=== PATIENT | male | born 1975 | race African-American/Black ===

== ENCOUNTER 2018-01-01 23:25 | Emergency (ER) | payer MEDICAID ==
[~2018-01-01] VITALS: Ht 180.3 cm; Wt 89.8 kg
[~2018-01-01 23:25] MED LIST: ACYCLOVIR200 MG/5 M ORAL; ADALAT CC60 MG ORAL; CELEXA20 MG ORAL; CLONIDINE0.1 MG PO; COZAAR100 MG ORAL; DILAUDID2 MG ORAL; FISH OIL CAP1000 MG ORAL; HUMALOG100 UNIT/3 SUBQ; LANTUS SOL100 UNIT/1 SUBQ; LOSARTAN POTAS100 MG ORAL; METOPROLOL SUC200 MG ORAL; METOPROLOL TART50 M1 ORAL; NEXIUM20 MG ORAL; NIFEDIPINE20 MG ORAL; NORCO 10-325 T1 EACH ORAL; ROXICODONE15 MG ORAL; TRANXENE T-TAB7.5 MG PO
[2018-01-01] MEDS ORDERED: VALIUM10 MG ORAL (23:46)
[2018-01-01 23:50] VITALS: BP 198/113
[2018-01-02] MEDS ORDERED: Acetaminophen 500mg (ES) tab ORAL ONE (00:45)
[2018-01-02 01:00] VITALS: BP 198/113
[2018-01-02 01:06] LABS: BASOPHILS % (AUTO) 1.1 % (0.0-2.0); HEMATOCRIT 33.4 % (42.0-52.0); HEMOGLOBIN 11.2 G/DL (14.2-18.0); LYMPHOCYTES % (AUTO) 32.5 % (20.0-45.0); MEAN CORPUSCULAR VOLUME 88 FL (80-99); MONOCYTES % (AUTO) 7.5 % (1.0-10.0); NEUTROPHILS % (AUTO) 55.9 % (45.0-75.0); PLATELET COUNT 313 K/UL (150-450); RED CELL DISTRIBUTION WIDTH 14.8 % (11.6-14.8); WHITE BLOOD COUNT 3.5 K/UL (4.8-10.8)
[2018-01-02 01:09] LABS: ANION GAP 6 mmol/L (5-15); BLOOD UREA NITROGEN 12 mg/dL (7-18); CALCIUM 8.6 MG/DL (8.5-10.1); CARBON DIOXIDE 30 MMOL/L (21-32); CHLORIDE 101 MMOL/L (98-107); POTASSIUM 3.1 MMOL/L (3.5-5.1); SODIUM 137 MMOL/L (136-145)
--- NOTE | 2018-01-02 01:22 | Emergency Room Report ---
History of Present Illness General Chief Complaint: Chest Pain Source: Patient Present Illness HPI Is a 42-year-old male who has been here for chest pain. He has a history of opioid dependence and has been to multiple hospitals for chest pain. He presents with chief complaint abdominal pain and chest pain. Onset for last 2 days. Pain is 10 out of 10. No nausea no vomiting. No radiation. No diaphoresis. Similar pain in the past. He is asking for Dilaudid. Said that he needed every 4 hours. Allergies: Coded Allergies: HYDRALAZINE (Verified Allergy, Severe, angio edema, 04/18/16) angio edema ETODOLAC (Unverified Allergy, Mild, 01/10/16) AMLODIPINE (Unverified Allergy, Unknown, 04/18/16) tolerates nifedipine 04/18/16 ASPIRIN (Verified Allergy, Unknown, 01/09/16) ATENOLOL (Verified Allergy, Unknown, 04/18/16) tolerates metoprolol 04/18/16 DIPHENHYDRAMINE (Verified Allergy, Unknown, 01/10/16) HYDROCHLOROTHIAZIDE (Verified Allergy, Unknown, 01/10/16) LABETALOL (Verified Allergy, Unknown, 04/18/16) tolerates metoprolol 04/18/16 LISINOPRIL (Unverified Allergy, Unknown, 01/10/16) LORATADINE (Verified Allergy, Unknown, 01/10/16) MILK (Verified Allergy, Unknown, 01/10/16) MORPHINE (Verified Allergy, Unknown, 01/09/16) NICARDIPINE (Verified Allergy, Unknown, 04/18/16) tolerates nifedipine 04/18/16 NITROGLYCERIN (Unverified Allergy, Unknown, 01/10/16) PENICILLINS (Unverified Allergy, Unknown, 04/18/16) tolerates cephalexin 04/18/16 [place] (Verified Allergy, Unknown, 01/10/16) SHELLFISH DERIVED (Verified Allergy, Unknown, 01/10/16) Patient History Past Medical History: see triage record, old chart reviewed, HTN Past Surgical History: other Pertinent Family History: none Social History: Denies: smoking Immunizations: other Reviewed Nursing Documentation: PMH: Agreed; PSxH: Agreed Nursing Documentation-PMH Hx Cardiac Problems: Yes Hx Hypertension: Yes Hx Diabetes: Yes Hx Cancer: No Hx Gastrointestinal Problems: No History Of Psychiatric Problem: Yes - anxiety Hx Neurological Problems: Yes - spinal stenosis Review of Systems Eye: Denies: eye pain, blurred vision ENT: Denies: ear pain, nose congestion, throat swelling Respiratory: Denies: cough, shortness of breath Cardiovascular: Reports: chest pain; Denies: palpitations Gastrointestinal: Reports: abdominal pain; Denies: diarrhea, nausea, vomiting Musculoskeletal: Denies: back pain, joint pain Skin: Denies: rash Neurological: Denies: headache, numbness Endocrine: Denies: increased thirst, increased urine Hematologic/Lymphatic: Denies: easy bruising All Other Systems: negative except mentioned in HPI Physical Exam Vital Signs Date Time Temp Pulse Resp B/P (MAP) Pulse Ox O2 Delivery O2 Flow Rate FiO2 01/01/18 23:41 118 20 198/113 99 Room Air vitals with tachycardia and hypertension Sp02 EP Interpretation: reviewed, normal General Appearance: well appearing, no apparent distress, alert Head: normocephalic, atraumatic Eyes: bilateral eye PERRL, bilateral eye EOMI ENT: hearing grossly normal, normal pharynx Neck: full range of motion, supple, no meningismus Respiratory: chest non-tender, lungs clear, normal breath sounds Cardiovascular #1: regular rate, rhythm, no murmur Gastrointestinal: normal bowel sounds, non tender, no mass, no organomegaly, no bruit, non-distended Musculoskeletal: back normal, gait/station normal, normal range of motion Psychiatric: mood/affect normal Skin: warm/dry Medical Decision Making Diagnostic Impression: Primary Impression: Chest pain Qualified Codes: R07.9 - Chest pain, unspecified Additional Impressions: Noncompliance w/medication treatment due to intermit use ofmedication Opioid dependence Qualified Codes: F11.20 - Opioid dependence, uncomplicated Hypertension Qualified Codes: I10 - Essential (primary) hypertension Abdominal pain Qualified Codes: R10.13 - Epigastric pain Uncontrolled diabetes mellitus Qualified Codes: E11.8 - Type 2 diabetes mellitus with unspecified complications; E11.65 - Type 2 diabetes mellitus with hyperglycemia ER Course Patient presents with chest pain and abdominal pain. He has numerous allergies to medication. He said that nitroglycerin give him hypertension. He said Benadryl give him itching. He said he can't take aspirin and can only take Dilaudid. I seen him in the past with the same reason patient. On the [employer] system, he had recent Dilaudid, oxycodone, and hydrocodone prescription. He has 3 different addresses including [place], [place], and [facility]. When I point this out, he became very agitated and said that he had to major surgery within the last couple months. He said that he had abdominal surgery and also heart surgery. He has no scar on his body. He said that he doesn't know what kind of surgery. He said I can call the Hospital in [place] if I want to know. He also is claimed that he has Dilaudid and his bag but wanted IV Dilaudid Because he would not get his Dilaudid, he signed out AMA. He is competent to make that decision. Lab Results Impression lab with elevated glucose EKG Diagnostic Results Rate: tachycardiac Rhythm: NSR ST Segments: other - NSST changes Rhythm Strip Diag. Results Rhythm Strip Time: 01:21 EP Interpretation: yes Rate: 100 Rhythm: NSR, no PVC's, no ectopy Chest X-Ray Diagnostic Results Chest X-Ray Diagnostic Results : Chest X-Ray Ordered: Yes # of Views/Limited/Complete: 1 View Indication: Chest Pain EP Interpretation: Yes Interpretation: no consolidation, no effusion, no pneumothorax, no acute cardiopulmonary disease Impression: No acute disease - Cardiomegaly Electronically Signed by: Naresh Barrientos MD Last Vital Signs Date Time Temp Pulse Resp B/P (MAP) Pulse Ox O2 Delivery O2 Flow Rate FiO2 01/01/18 23:41 118 20 198/113 99 Room Air Status: improved Disposition: AGAINST MEDICAL ADVICE Condition: Stable Referrals: NOT CHOSEN MARLENY/,REFERRING (PCP) NARESH BARRIENTOS M.D. Jan 02, 2018 01:22
[2018-01-02 01:23] LABS: ALANINE AMINOTRANSFERASE 27 U/L (12-78); ALBUMIN 3.6 G/DL (3.4-5.0); ALBUMIN/GLOBULIN RATIO 0.9 (1.0-2.7); ALKALINE PHOSPHATASE 79 U/L (46-116); ASPARTATE AMINO TRANSFERASE 14 U/L (15-37); BILIRUBIN,TOTAL 0.2 MG/DL (0.2-1.0); CKMB 6.3 NG/ML (0.0-3.6); CREATINE KINASE 302 U/L (26-308)
--- NOTE | 2018-01-02 10:36 | Diagnostic Imaging Report ---
Indication: Chest pain Technique: One view of the chest Comparison: 04/15/2016 Findings: Lungs and pleural spaces are clear. Heart size is normal Impression: No acute process
--- NOTE | 2018-01-02 21:18 | Cardiology Report ---
APPROVED REPORT EKG Measurement Heart [id number] IA [id number] Sinus tachycardia Possible Left atrial enlargement Left ventricular hypertrophy Abnormal ECG
== END 2018-01-02 01:00 | disposition left against medical advice (07) ==
LOC: EMR 23:45
DX: R07.9 Chest pain, unspecified (principal); R10.9 Unspecified abdominal pain; Z91.14 Patient's other noncompliance with medication regimen; F11.20 Opioid dependence, uncomplicated; I10 Essential (primary) hypertension; E11.9 Type 2 diabetes mellitus without complications; F41.9 Anxiety disorder, unspecified; Z88.8 Allergy status to other drugs, medicaments and biological substances; Z88.6 Allergy status to analgesic agent; Z91.011 Allergy to milk products; Z88.0 Allergy status to penicillin; Z91.013 Allergy to seafood
CPT/HCPCS: 36415; 71045; 80053; 80307; 82550; 82553; 84484; 85025; 93005; 99283

== ENCOUNTER 2018-01-11 06:25 | Emergency (ER) | payer MEDICAID ==
[~2018-01-11] VITALS: Ht 177.8 cm; Wt 68.0 kg
[~2018-01-11 06:25] MED LIST changes: +VALIUM10 MG ORAL
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
[2018-01-11 07:06] VITALS: BP 169/119
[2018-01-11 09:07] LABS: BASOPHILS % (AUTO) 1.4 % (0.0-2.0); EOSINOPHILS % (AUTO) 0.7 % (0.0-3.0); HEMATOCRIT 41.6 % (42.0-52.0); HEMOGLOBIN 13.1 G/DL (14.2-18.0); LYMPHOCYTES % (AUTO) 32.9 % (20.0-45.0); MEAN CORPUSCULAR VOLUME 89 FL (80-99); MONOCYTES % (AUTO) 9.9 % (1.0-10.0); NEUTROPHILS % (AUTO) 55.2 % (45.0-75.0); PLATELET COUNT 198 K/UL (150-450); RED CELL DISTRIBUTION WIDTH 14.8 % (11.6-14.8); WHITE BLOOD COUNT 3.6 K/UL (4.8-10.8)
[2018-01-11 09:10] VITALS: BP 162/108
[2018-01-11 09:14] LABS: ANION GAP 10 mmol/L (5-15); BLOOD UREA NITROGEN 15 mg/dL (7-18); CALCIUM 9.1 MG/DL (8.5-10.1); CARBON DIOXIDE 28 MMOL/L (21-32); CHLORIDE 103 MMOL/L (98-107); CREATININE 0.8 MG/DL (0.55-1.30); POTASSIUM 3.6 MMOL/L (3.5-5.1); SODIUM 141 MMOL/L (136-145)
[2018-01-11 09:18] LABS: ALANINE AMINOTRANSFERASE 31 U/L (12-78); ALBUMIN 4.1 G/DL (3.4-5.0); ALKALINE PHOSPHATASE 63 U/L (46-116); ASPARTATE AMINO TRANSFERASE 25 U/L (15-37); BILIRUBIN,TOTAL 0.5 MG/DL (0.2-1.0); CREATINE KINASE 655 U/L (26-308)
[2018-01-11] MEDS ORDERED: CELEXA20 MG ORAL (10:20)
[2018-01-11 11:00] VITALS: BP 162/108
--- NOTE | 2018-01-11 11:02 | Diagnostic Imaging Report ---
Indication: Dyspnea Comparison: 01/02/2018 A single view chest radiograph was obtained. Findings: Cardiomediastinal appearance is within normal limits for age. Pulmonary vascularity is appropriate. The diaphragmatic contour is smooth and costophrenic angles are sharp. No pleural effusions are identified. The bones are unremarkable. Impression: No acute findings
== END 2018-01-11 11:26 | disposition home or self-care (01) ==
LOC: EDBD 06:25 → EMR 06:46
DX: F32.9 Major depressive disorder, single episode, unspecified (principal); F43.10 Post-traumatic stress disorder, unspecified; X58.XXXA Exposure to other specified factors, initial encounter; G89.4 Chronic pain syndrome; I10 Essential (primary) hypertension; E11.9 Type 2 diabetes mellitus without complications; Z88.6 Allergy status to analgesic agent; Z88.0 Allergy status to penicillin; Z91.011 Allergy to milk products; Z88.5 Allergy status to narcotic agent; Z91.013 Allergy to seafood; R00.1 Bradycardia, unspecified; M48.00 Spinal stenosis, site unspecified
CPT/HCPCS: 36415; 71045; 80053; 80329; 82550; 84484; 85025; 93005; 96372; 99283

== ENCOUNTER 2018-12-19 00:04 | Emergency (ER) | payer MEDICAID ==
[~2018-12-19] VITALS: Ht 180.3 cm; Wt 86.2 kg
[2018-12-19] MEDS ORDERED: COZAAR100 MG ORAL (00:53)
[2018-12-19 01:00] VITALS: BP 178/111
--- NOTE | 2018-12-19 01:00 | NUR ---
ER Nurse Note: Pt BIBA [address]/o behavior complaint; pt stated he feel depressed because today is his mother's anniversary, also feeling lost and does not have "a direction in life". Pt rambles incoherent statements and repeats them. Pt calm, VSS elevated, no signs of distress. All belongings taken and placed in locker 2. ERMD at pt side; will continue to [facility].
[2018-12-19 01:15] LABS: ANION GAP 11 mmol/L (5-15); BLOOD UREA NITROGEN 15 mg/dL (7-18); CALCIUM 9.3 MG/DL (8.5-10.1); CARBON DIOXIDE 27 MMOL/L (21-32); CHLORIDE 103 MMOL/L (98-107); POTASSIUM 5.1 MMOL/L (3.5-5.1); SODIUM 141 MMOL/L (136-145)
[2018-12-19 01:16] LABS: HEMATOCRIT 41.7 % (42.0-52.0); HEMOGLOBIN 13.5 G/DL (14.2-18.0); MEAN CORPUSCULAR VOLUME 91 FL (80-99); PLATELET COUNT 261 K/UL (150-450); RED BLOOD COUNT 4.61 M/UL (4.70-6.10); RED CELL DISTRIBUTION WIDTH 14.8 % (11.6-14.8)
[2018-12-19 01:20] LABS: ALANINE AMINOTRANSFERASE 45 U/L (12-78); ALKALINE PHOSPHATASE 65 U/L (46-116); BILIRUBIN,TOTAL 0.6 MG/DL (0.2-1.0)
[2018-12-19 01:29] LABS: ASPARTATE AMINO TRANSFERASE 73 U/L (15-37)
[2018-12-19 01:31] VITALS: BP 144/81
--- NOTE | 2018-12-19 01:37 | NUR ---
ER Nurse Note: Pt has not provided urine; all other labs sent and awaiting results. Pt asleep, IV infusing NS, BP 144/81. All safety measures met; will continue to [facility].
--- NOTE | 2018-12-19 03:09 | Emergency Room Report ---
History of Present Illness General Chief Complaint: Behavioral Complaint Source: Patient, EMS (Tereza Nieves DO) Present Illness HPI Patient brought in by paramedics Reports of feeling depressed Patient reports that it was his mother's birthday who has After initial minimal discussion patient has fall sleep History of present illness remains somewhat limited Patient denied any plans of suicide prior to falling asleep Denies any chest pain denies any vomiting (Tereza Nieves DO) Allergies: Coded Allergies: HYDRALAZINE (Verified Allergy, Severe, angio edema, 01/11/18) angio edema ETODOLAC (Unverified Allergy, Mild, 01/11/18) AMLODIPINE (Unverified Allergy, Unknown, 01/11/18) tolerates nifedipine 04/18/16 ASPIRIN (Verified Allergy, Unknown, 01/11/18) ATENOLOL (Verified Allergy, Unknown, 01/11/18) tolerates metoprolol 04/18/16 DIPHENHYDRAMINE (Verified Allergy, Unknown, 01/11/18) HYDROCHLOROTHIAZIDE (Verified Allergy, Unknown, 01/11/18) LABETALOL (Verified Allergy, Unknown, 01/11/18) tolerates metoprolol 04/18/16 LISINOPRIL (Unverified Allergy, Unknown, 01/10/16) LORATADINE (Verified Allergy, Unknown, 01/11/18) MILK (Verified Allergy, Unknown, 01/11/18) MORPHINE (Verified Allergy, Unknown, 01/11/18) NICARDIPINE (Verified Allergy, Unknown, 01/11/18) tolerates nifedipine 04/18/16 NITROGLYCERIN (Unverified Allergy, Unknown, 01/11/18) PENICILLINS (Unverified Allergy, Unknown, 01/11/18) tolerates cephalexin 04/18/16 [place] (Verified Allergy, Unknown, 01/11/18) SHELLFISH DERIVED (Verified Allergy, Unknown, 01/11/18) Patient History Limited by: medical condition Past Medical History: see triage record Pertinent Family History: unable to obtain Reviewed Nursing Documentation: PMH: Agreed; PSxH: Agreed (Tereza Nieves DO) Nursing Documentation-PMH Past Medical History: No History, Except For Hx Cardiac Problems: Yes - loop recorder placed in 2019 Hx Hypertension: Yes Hx Diabetes: Yes Hx Cancer: No Hx Gastrointestinal Problems: Yes - peptic ulcer Hx Dialysis: No - spinal stenosis Hx Neurological Problems: Yes - spinal stenosis (Tereza Nieves DO) Review of Systems All Other Systems: limited - Other than the ones mentioned in the history of present illness all others are reviewed however they do stay limited due to the patient's mental status (Tereza Nieves DO) Physical Exam Vital Signs Date Time Temp Pulse Resp B/P (MAP) Pulse Ox O2 Delivery O2 Flow Rate FiO2 12/19/18 00:00 99.0 140 20 178/111 95 Room Air Sp02 EP Interpretation: reviewed, normal General Appearance: no apparent distress Head: normocephalic, atraumatic Eyes: bilateral eye PERRL, bilateral eye EOMI ENT: hearing grossly normal, normal pharynx, TMs + canals normal, uvula midline Neck: full range of motion, supple, no meningismus, no bony tend Respiratory: lungs clear, normal breath sounds, no rhonchi, no respiratory distress, no retraction, no accessory muscle use Cardiovascular #1: normal peripheral pulses, regular rate, rhythm, no edema, no gallop, no JVD, no murmur Gastrointestinal: normal bowel sounds, non tender, soft, no mass, no organomegaly, non-distended, no guarding, no hernia, no pulsatile mass, no rebound Genitourinary: no CVA tenderness Musculoskeletal: normal inspection Neurologic: responsive, motor strength/tone normal, sensory intact Psychiatric: mood/affect normal Skin: normal color, no rash, warm/dry, palpation normal Lymphatic: normal inspection, no adenopathy (Tereza Nieves DO) Medical Decision Making Diagnostic Impression: Primary Impression: Depression ER Course Multiple differentials and consideration patient has initial blood work for further medical clearance patient's white blood cell count Is low consistent with multiple previous examinations Otherwise remains calm and restful throughout the night Given the patient's complaints and presentation I feel he will require psychiatric consultation who will be contacted in the morning After initial observation patient, had complained of epigastric discomfort reports has a history of peptic ulcer disease Patient also requesting Dilaudid Reports that he cannot take Tylenol however, he can take [place] Patient also reports that he has been seen by multiple medical imaging director, he also does not feel that he has been getting the appropriate answers from different psychiatrist. Patient's otherwise medically further cleared Labs Test 12/19/18 00:35 12/19/18 03:35 White Blood Count 3.0 K/UL (4.8-10.8) Red Blood Count 4.61 M/UL (4.70-6.10) Hemoglobin 13.5 G/DL (14.2-18.0) Hematocrit 41.7 % (42.0-52.0) Mean Corpuscular Volume 91 FL (80-99) Mean Corpuscular Hemoglobin 29.2 PG (27.0-31.0) Mean Corpuscular Hemoglobin Concent 32.3 G/DL (32.0-36.0) Red Cell Distribution Width 14.8 % (11.6-14.8) Platelet Count 261 K/UL (150-450) Mean Platelet Volume 7.1 FL (6.5-10.1) Neutrophils (%) (Auto) % (45.0-75.0) Lymphocytes (%) (Auto) % (20.0-45.0) Monocytes (%) (Auto) % (1.0-10.0) Eosinophils (%) (Auto) % (0.0-3.0) Basophils (%) (Auto) % (0.0-2.0) Differential Total Cells Counted 100 Neutrophils % (Manual) 58 % (45-75) Lymphocytes % (Manual) 33 % (20-45) Monocytes % (Manual) 6 % (1-10) Eosinophils % (Manual) 1 % (0-3) Basophils % (Manual) 2 % (0-2) Band Neutrophils 0 % (0-8) Platelet Estimate Adequate Platelet Morphology Normal Anisocytosis 1+ Ovalocytes 1+ Sodium Level 141 MMOL/L (136-145) Potassium Level 5.1 MMOL/L (3.5-5.1) Chloride Level 103 MMOL/L (98-107) Carbon Dioxide Level 27 MMOL/L (21-32) Anion Gap 11 mmol/L (5-15) Blood Urea Nitrogen 15 mg/dL (7-18) Creatinine 1.0 MG/DL (0.55-1.30) Estimat Glomerular Filtration Rate > 60 mL/min (>60) Glucose Level 189 MG/DL (74-106) Calcium Level 9.3 MG/DL (8.5-10.1) Total Bilirubin 0.6 MG/DL (0.2-1.0) Aspartate Amino Transf (AST/SGOT) 73 U/L (15-37) Alanine Aminotransferase (ALT/SGPT) 45 U/L (12-78) Alkaline Phosphatase 65 U/L (46-116) Troponin I 0.032 ng/mL (0.000-0.056) Total Protein 8.0 G/DL (6.4-8.2) Albumin 4.0 G/DL (3.4-5.0) Globulin 4.0 g/dL Albumin/Globulin Ratio 1.0 (1.0-2.7) Salicylates Level 2.2 ug/mL (2.8-20) Acetaminophen Level < 2 MCG/ML (10-30) Serum Alcohol < 3 mg/dL Urine Opiates Screen Negative (NEGATIVE) Urine Barbiturates Screen Negative (NEGATIVE) Phencyclidine (PCP) Screen Negative (NEGATIVE) Urine Amphetamines Screen Positive (NEGATIVE) Urine Benzodiazepines Screen Positive (NEGATIVE) Urine Cocaine Screen Negative (NEGATIVE) Urine Marijuana (THC) Screen Negative (NEGATIVE) (Tereza Nieves DO) ER Course I discussed this case with Dr. Martinez and she felt there is no need for inpatient evaluation. She thinks he has a personality disorder, but is not suicidal or psychotic currently. Will dc home. Patient seeking pain meds for his chronic back pain, requesting Dilaudid and oxycodone. (DANUTA CARTER M.D) Rhythm Strip Diag. Results EP Interpretation: yes Rate: 70 Rhythm: NSR, no PVC's, no ectopy (Tereza Nieves DO) Last Vital Signs Date Time Temp Pulse Resp B/P (MAP) Pulse Ox O2 Delivery O2 Flow Rate FiO2 12/19/18 01:31 99.0 110 20 144/81 98 Room Air Status: improved (Tereza Nieves DO) Referrals: NOT CHOSEN IPA/,REFERRING (PCP) Tereza Nieves DO Dec 19, 2018 03:09 DANUTA CARTER M.D Dec 19, 2018 10:37
[2018-12-19 03:43] VITALS: BP 140/78
[2018-12-19] MEDS ORDERED: Dicyclomine HCl 10mg/5ml oral soln ORAL ONE (05:15)
[2018-12-19] MEDS ORDERED: Mylanta II UD 30ml ORAL ONE (05:15)
[2018-12-19] MEDS ORDERED: Lidocaine 2% Visc 15ml soln ORAL ONE (05:15)
--- NOTE | 2018-12-19 05:25 | NUR ---
ER Nurse Note: Pt is medically cleared and waiting for psych in the AM. Pt stated he can only take diludad, fentynl, and norco for his pain management. Pt has not complained of pain throughout shift. Pt is upset and refusing to be relocated to a tx 1. Pt stated he cannot have a shared room per his psychiatrist orders. All meds given per ERMD orders. Report given to ADAN Vigil.
[2018-12-19] MEDS ORDERED: HYDROcodone/Acetamin 10/325 tab ORAL ONE (05:30)
--- NOTE | 2018-12-19 05:40 | NUR ---
ED Nurse Note: Patient moved from monitored bed to ortho. Patient has letter from psychiatric facility that he believes confirms why he is to be in a private room. Copied made and placed in chart. Patient agreed to take GI cocktail and pain medication. will continue to monitor.
[2018-12-19 06:14] VITALS: BP 168/117
--- NOTE | 2018-12-19 07:15 | NUR ---
ED Nurse Note: Reports received. pt doing yoga on the floor. respirations even and non-labored noted. skin warm to touch. no open wound noted. AAO x 4. denies SI/HI. denies hearing voices or seeing any things. pt felt depressed due to yesterday was mom's b-day. ordered breakfast tray. will wait for the Dr. Martinez for eval.
[2018-12-19 07:57] VITALS: BP 156/102
[2018-12-19] MEDS ORDERED: oxyCODONE HCL/Acetaminophen 5/325mg ORAL ONE (10:15)
--- NOTE | 2018-12-19 10:45 | NUR ---
ED Nurse Note: Dr. smith at the bed side.
--- NOTE | 2018-12-19 11:25 | NUR ---
ED Nurse Note: pt cleared to be discharge by Dr. Martinez and Dr. He. pt wants to take a shower before discharge. RN instructed pt that no available staff and available shower facility at the ED. RN provide wash cloth and tooth brush with tooth paste. PT request razor and RN explained to pt that no razor at this time. will wait until pt get dress up.
[2018-12-19 11:27] VITALS: BP 150/101
--- NOTE | 2018-12-19 11:58 | NUR ---
Note vanessa in EDM - 12/19/18 at 1238 by LINH ER DISCHARGE NOTE: Patient is cleared to be discharged per ERMD, pt is aox4, on room air, with stable vital signs. pt was given dc instructions, pt was able to verbalize understanding, pt id band removed. pt is able to ambulate with steady gait. pt took all belongings.
--- NOTE | 2018-12-19 12:37 | NUR ---
ER DISCHARGE NOTE: Patient is cleared to be discharged per ERMD, pt is aox4, on room air, with stable vital signs. pt was given dc and prescription instructions, pt was able to verbalize understanding, pt id band and iv site removed without complications. pt is able to ambulate with steady gait. pt took all belongings.
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
== END 2018-12-19 12:38 | disposition home or self-care (01) ==
LOC: EDBD 00:04 → EMR 00:36
DX: F32.9 Major depressive disorder, single episode, unspecified (principal); I10 Essential (primary) hypertension; E11.9 Type 2 diabetes mellitus without complications; Z87.11 Personal history of peptic ulcer disease; Z88.0 Allergy status to penicillin; Z88.8 Allergy status to other drugs, medicaments and biological substances; Z88.6 Allergy status to analgesic agent; Z91.011 Allergy to milk products; Z91.013 Allergy to seafood
CPT/HCPCS: 36415; 80053; 80307; 80329; 84484; 85007; 85025; 99284; J7040

== ENCOUNTER 2020-05-14 04:21 | Inpatient (IN) | payer BC, MEDICAID ==
[2020-05-14] VITALS (9 sets, daily range): BP systolic 162–207; BP diastolic 100–130
[~2020-05-14] VITALS: Ht 188 cm; Wt 106.6 kg
--- NOTE | 2020-05-14 04:25 | NUR ---
Nurse Note: Pt brought in by ambulance 26 c/o LT side upper and lower abd pain since 05/13. 06/25 pain, Pt stated unk cause, denies trauma, denies abdnormal ingestion. Pt denies ETOH use, drug use. Pt stated he is healthy. Pt attached to [facility]. All safety measures met; will continue to [facility].
[2020-05-14] MEDS ORDERED: HYDROmorphone 1mg/ml Carpuject IVP ONE ×3 (04:45→08:30)
--- NOTE | 2020-05-14 05:08 | Diagnostic Imaging Report ---
EXAM: XR Chest, 1 View CLINICAL HISTORY: VOMITING TECHNIQUE: Frontal view of the chest. COMPARISON: No relevant prior studies available. FINDINGS: Lungs: Unremarkable. No consolidation. Pleural space: Unremarkable. No pneumothorax. Heart: Unremarkable. No cardiomegaly. Mediastinum: Unremarkable. Bones/joints: Unremarkable. IMPRESSION: Normal chest x-ray.
[2020-05-14 05:15] LABS: BASOPHILS % (AUTO) 0.9 % (0.0-2.0); EOSINOPHILS % (AUTO) 2.4 % (0.0-3.0); HEMATOCRIT 39.1 % (42.0-52.0); HEMOGLOBIN 11.9 G/DL (14.2-18.0); LYMPHOCYTES % (AUTO) 17.9 % (20.0-45.0); MEAN CORPUSCULAR VOLUME 86 FL (80-99); MONOCYTES % (AUTO) 8.7 % (1.0-10.0); NEUTROPHILS % (AUTO) 70.1 % (45.0-75.0); PLATELET COUNT 327 K/UL (150-450); RED BLOOD COUNT 4.55 M/UL (4.70-6.10); RED CELL DISTRIBUTION WIDTH 15.9 % (11.6-14.8); WHITE BLOOD COUNT 5.4 K/UL (4.8-10.8)
[2020-05-14] MEDS ORDERED: fentaNYL 100 mcg/2 mL IV ONE (05:15)
[2020-05-14 05:25] LABS: ANION GAP 8 mmol/L (5-15); BLOOD UREA NITROGEN 13 mg/dL (7-18); CALCIUM 9.3 MG/DL (8.5-10.1); CARBON DIOXIDE 30 MMOL/L (21-32); CHLORIDE 100 MMOL/L (98-107); CREATININE 1.1 MG/DL (0.55-1.30); SODIUM 138 MMOL/L (136-145)
[2020-05-14 05:30] LABS: ALANINE AMINOTRANSFERASE 20 U/L (12-78); ALBUMIN 3.9 G/DL (3.4-5.0); ALBUMIN/GLOBULIN RATIO 0.9 (1.0-2.7); ALKALINE PHOSPHATASE 87 U/L (46-116); ASPARTATE AMINO TRANSFERASE 17 U/L (15-37); BILIRUBIN,TOTAL 0.3 MG/DL (0.2-1.0)
--- NOTE | 2020-05-14 05:41 | Emergency Room Report ---
History of Present Illness General Chief Complaint: Abdominal Pain Source: Patient Present Illness HPI 45-year-old male with one episode of vomiting and diarrhea earlier tonight and generalized abdominal pain. Patient says that he was eating dinner and then several hours later began to feel generalized abdominal cramping and pain and vomited once and had one episode of diarrhea. Vomiting was nonbilious nonbloody , only occurred 1 time. He had one episode of diarrhea nonbloody. Pain is sharp in nature, located diffusely, poorly localized. He is in no distress whatsoever in the emergency department. Denies fevers, chills, chest pain, palpitation, shortness of breath, back pain, dysuria, hematuria. Patient claims that he has CHF with an ejection fraction of 16% and 2 pulmonary embolisms in the past but not on any anticoagulation because "they said I did not need it anymore." On arrival the patient was immediately demanding Dilaudid and became very agitated when I told him that there was no indication for this. Allergies: Coded Allergies: HYDRALAZINE (Verified Allergy, Severe, angio edema, 01/11/18) angio edema ETODOLAC (Unverified Allergy, Mild, 01/11/18) AMLODIPINE (Unverified Allergy, Unknown, 01/11/18) tolerates nifedipine 04/18/16 ASPIRIN (Verified Allergy, Unknown, 01/11/18) ATENOLOL (Verified Allergy, Unknown, 01/11/18) tolerates metoprolol 04/18/16 DIPHENHYDRAMINE (Verified Allergy, Unknown, 01/11/18) HYDROCHLOROTHIAZIDE (Verified Allergy, Unknown, 01/11/18) LABETALOL (Verified Allergy, Unknown, 01/11/18) tolerates metoprolol 04/18/16 LISINOPRIL (Unverified Allergy, Unknown, 01/10/16) LORATADINE (Verified Allergy, Unknown, 01/11/18) MILK (Verified Allergy, Unknown, 01/11/18) MORPHINE (Verified Allergy, Unknown, 01/11/18) NICARDIPINE (Verified Allergy, Unknown, 01/11/18) tolerates nifedipine 04/18/16 NITROGLYCERIN (Unverified Allergy, Unknown, 01/11/18) PENICILLINS (Unverified Allergy, Unknown, 01/11/18) tolerates cephalexin 04/18/16 [place] Nut (Verified Allergy, Unknown, 01/11/18) SHELLFISH DERIVED (Verified Allergy, Unknown, 01/11/18) COVID-19 Screening Contact w/high risk pt: No Experienced COVID-19 symptoms?: No COVID-19 Testing performed 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 Nursing Documentation-[facility] Past Medical History: No History, Except For Hx Cardiac Problems: Yes - loop recorder placed in 2019 Hx Hypertension: Yes Hx Diabetes: Yes Hx Cancer: No Hx Gastrointestinal Problems: Yes - peptic ulcer Hx Dialysis: No - spinal stenosis Hx Neurological Problems: Yes - spinal stenosis Review of Systems All Other Systems: negative except mentioned in HPI Physical Exam Vital Signs Date Time Temp Pulse Resp B/P (MAP) Pulse Ox O2 Delivery O2 Flow Rate FiO2 05/14/20 04:22 99.0 80 16 138/90 (106) 98 Room Air Sp02 EP Interpretation: reviewed, normal General Appearance: no apparent distress, alert, GCS 15, non-toxic Head: normocephalic, atraumatic Eyes: bilateral eye normal inspection, bilateral eye PERRL ENT: hearing grossly normal, normal pharynx, no angioedema, normal voice Neck: full range of motion, supple/symm/no masses Respiratory: chest non-tender, lungs clear, normal breath sounds, speaking full sentences Cardiovascular #1: regular rate, rhythm, no edema Cardiovascular #2: 2+ carotid (R), 2+ carotid (L), 2+ radial (R), 2+ radial (L) , 2+ dorsalis pedis (R), 2+ dorsalis pedis (L) Gastrointestinal: normal bowel sounds, soft, non-distended, no guarding, no rebound, other - Subjective generalized abdominal tenderness. Nondistended, non -peritoneal ache. No focal pain. No rebound or guarding Rectal: deferred Genitourinary: normal inspection, no CVA tenderness Musculoskeletal: back normal, normal range of motion, calf tenderness, gait/ station normal, non-tender Neurologic: alert, motor strength/tone normal, oriented x3, sensory intact, responsive, speech normal Psychiatric: judgement/insight normal, memory normal, mood/affect normal, no suicidal/homicidal ideation Lymphatic: no adenopathy Medical Decision Making Diagnostic Impression: Primary Impression: Vomiting and diarrhea ER Course EKG: Rate 104 bpm. QTc 497. No obvious ST or T wave abnormalities. Otherwise normal intervals. Sinus tachycardia. Normal axis Chest x-ray: No infiltrate/effusion. Mediastinum within normal limits Laboratory Tests Test 05/14/20 05:05 White Blood Count 5.4 K/UL (4.8-10.8) Red Blood Count 4.55 M/UL (4.70-6.10) L Hemoglobin 11.9 G/DL (14.2-18.0) L Hematocrit 39.1 % (42.0-52.0) L Mean Corpuscular Volume 86 FL (80-99) Mean Corpuscular Hemoglobin 26.2 PG (27.0-31.0) L Mean Corpuscular Hemoglobin Concent 30.5 G/DL (32.0-36.0) L Red Cell Distribution Width 15.9 % (11.6-14.8) H Platelet Count 327 K/UL (150-450) Mean Platelet Volume 7.1 FL (6.5-10.1) Neutrophils (%) (Auto) 70.1 % (45.0-75.0) Lymphocytes (%) (Auto) 17.9 % (20.0-45.0) L Monocytes (%) (Auto) 8.7 % (1.0-10.0) Eosinophils (%) (Auto) 2.4 % (0.0-3.0) Basophils (%) (Auto) 0.9 % (0.0-2.0) Sodium Level 138 MMOL/L (136-145) Potassium Level 3.0 MMOL/L (3.5-5.1) L Chloride Level 100 MMOL/L (98-107) Carbon Dioxide Level 30 MMOL/L (21-32) Anion Gap 8 mmol/L (5-15) Blood Urea Nitrogen 13 mg/dL (7-18) Creatinine 1.1 MG/DL (0.55-1.30) Estimated Glomerular Filtration Rate > 60 mL/min (>60) Glucose Level 290 MG/DL (74-106) H Lactic Acid Level 1.00 mmol/L (0.4-2.0) Calcium Level 9.3 MG/DL (8.5-10.1) Total Bilirubin 0.3 MG/DL (0.2-1.0) Aspartate Amino Transferase (AST) 17 U/L (15-37) Alanine Aminotransferase (ALT) 20 U/L (12-78) Alkaline Phosphatase 87 U/L (46-116) Total Protein 8.1 G/DL (6.4-8.2) Albumin 3.9 G/DL (3.4-5.0) Globulin 4.2 g/dL Albumin/Globulin Ratio 0.9 (1.0-2.7) L 45-year-old male here with vomiting and diarrhea. Patient was hemodynamically stable and in no acute distress whatsoever. Despite this the patient was requesting Dilaudid multiple times in the emergency department. Review of the patient's De Correspondent activity showed many recent prescriptions for opiate medications. I reviewed this with the patient and he immediately became very agitated and then started demanding fentanyl. He received 1 dose of fentanyl in the emergency department and was tolerating p.o. intake and he appeared to be in no acute distress. CBC unremarkable. CMP revealed a mildly low potassium of 3.0 which was repleted with 40 mg p.o. that the patient tolerated well. He received Zofran. When informed the patient that his labs were otherwise unremarkable he became extremely agitated and became verbally abusive and angry. He otherwise was in no acute distress whatsoever and had completely normal vital signs in the emergency department. Discharged in stable condition. Last Vital Signs Date Time Temp Pulse Resp B/P (MAP) Pulse Ox O2 Delivery O2 Flow Rate FiO2 05/14/20 04:25 102 16 Room Air 05/14/20 04:25 98.7 162/100 99 Referrals: NON PHYSICIAN (PCP) Selvin Damon M.D. May 14, 2020 05:41
--- NOTE | 2020-05-14 06:00 | NUR ---
Nurse Note: Pt refusing to leave after providing information for discharge. Pt stated "I got no help, my pain is not treated, and I did not get the treatment needed for my illness". Pt stated "I got Fentanyl but my pain is still here. I am not ready to leave." Pt is medically cleared by ER MD; all information was explained and advised to follow up with primary care physican for further evulation.
--- NOTE | 2020-05-14 06:49 | Emergency Room Report ---
History of Present Illness General Chief Complaint: Abdominal Pain Source: Patient Present Illness HPI The patient was signed out to me by Dr. Damon. The patient mainly is complaining about left upper abdominal pain that began yesterday. He also has chest pain that is exertional radiating to his shoulder. The abdominal pain radiates downward to his legs also. Denies any diarrhea. The patient received 1 dose of fentanyl. Initially it helped but the pain is returned and he states is worse than when he came in. He rates it at 6/10 and throbbing. In addition he is complaining about a right-sided throbbing headache that somewhat less than that. His blood pressures gone up in the emergency department he is worried about that also. The patient denies dysuria or diarrhea. The pain is throbbing and constant. The patient states that he has had 2 pulmonary emboli in the last year. He stopped anticoagulation in September or October. He is requesting that we restart anticoagulation at this time. Patient also states that he has a reduced ejection fraction. We have a nuclear med scan scan from 2016 that showed 53%. In discussing this the patient states that is much less than that at this time. Patient is a diabetic. Patient is allergic to contrast dye. He states that he usually gets prednisone and Solu-Medrol before having his CT studies. Patient is d-dimer is negative. Lovenox not indicated or other anticoagulation at this time. Suspicion for pulmonary embolus extremely low as oxygen saturation is normal. Allergies: Coded Allergies: HYDRALAZINE (Verified Allergy, Severe, angio edema, 01/11/18) angio edema ETODOLAC (Unverified Allergy, Mild, 01/11/18) AMLODIPINE (Unverified Allergy, Unknown, 01/11/18) tolerates nifedipine 04/18/16 ASPIRIN (Verified Allergy, Unknown, 01/11/18) ATENOLOL (Verified Allergy, Unknown, 01/11/18) tolerates metoprolol 04/18/16 DIPHENHYDRAMINE (Verified Allergy, Unknown, 01/11/18) HYDROCHLOROTHIAZIDE (Verified Allergy, Unknown, 01/11/18) LABETALOL (Verified Allergy, Unknown, 01/11/18) tolerates metoprolol 04/18/16 LISINOPRIL (Unverified Allergy, Unknown, 01/10/16) LORATADINE (Verified Allergy, Unknown, 01/11/18) MILK (Verified Allergy, Unknown, 01/11/18) MORPHINE (Verified Allergy, Unknown, 01/11/18) NICARDIPINE (Verified Allergy, Unknown, 01/11/18) tolerates nifedipine 04/18/16 NITROGLYCERIN (Unverified Allergy, Unknown, 01/11/18) PENICILLINS (Unverified Allergy, Unknown, 01/11/18) tolerates cephalexin 04/18/16 [place] Nut (Verified Allergy, Unknown, 01/11/18) SHELLFISH DERIVED (Verified Allergy, Unknown, 01/11/18) COVID-19 Screening Contact w/high risk pt: No Experienced COVID-19 symptoms?: No COVID-19 Testing performed CASINO HOST: No Patient History Past Medical History: see triage record Social History: Denies: smoking - recently stopped, alcohol use, drug use 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 Nursing Documentation: PMH: Agreed; PSxH: Agreed Nursing Documentation-PMH Past Medical History: No History, Except For Hx Cardiac Problems: Yes - loop recorder placed in 2019 Hx Hypertension: Yes Hx Diabetes: Yes Hx Cancer: No Hx Gastrointestinal Problems: Yes - peptic ulcer Hx Dialysis: No - spinal stenosis Hx Neurological Problems: Yes - spinal stenosis Review of Systems All Other Systems: negative except mentioned in HPI Physical Exam Vital Signs Date Time Temp Pulse Resp B/P (MAP) Pulse Ox O2 Delivery O2 Flow Rate FiO2 05/14/20 04:22 99.0 80 16 138/90 (106) 98 Room Air Sp02 EP Interpretation: reviewed, normal General Appearance: well appearing, no apparent distress, GCS 15, non-toxic Head: normocephalic Eyes: bilateral eye normal inspection, bilateral eye PERRL, bilateral eye EOMI ENT: moist mucus membranes Neck: supple Respiratory: normal inspection Cardiovascular #1: regular rate, rhythm, no edema Cardiovascular #2: 2+ radial (R) Gastrointestinal: normal inspection, normal bowel sounds, no mass, non- distended, no guarding, no rebound, tenderness - Left upper quadrant, overweight Genitourinary: no CVA tenderness Musculoskeletal: back normal, normal range of motion, no calf tenderness, gait/ station normal Neurologic: alert, oriented x3, grossly normal Psychiatric: anxious Skin: no rash, warm/dry Procedures Critical Care Time Critical Care Time Total Critical Care Time: 45 min bedside evaluation and treatment excludes procedures (EKG). Reason for critical care: review of records, hypertensive urgency, discussion with HMO physician, admitting MD, GI specialist Possible complications: hypotension, hypertension, SD, shock, arrhythmias, metabolic acidosis, end organ damage. Interventions: analgesia, metoprolol, repeat evaluations, Course: Patient signed out to me with abdominal pain, chest pain and hypertension. Expanded evaluation undertaken. Treatment of pain. Continued hypertension. Multiple discussions with HMO MD. Metoprolol given IV. CT reviewed. Repeat exam and analgesia. HTN continued and metoprolol repeated IV. HMO physician states unstable for transfer. Discussion with admitting MD and GI banking consultant. Consultations: nursing staff, HMO physician, admitting physician, GI specialist , signing out ERMD Performed by: Dr. Cornelius Tolerated well condition = serious - deemed non-transferrable by O MD due to hypertensive urgency Medical Decision Making Diagnostic Impression: Primary Impression: Hypertensive urgency Additional Impressions: Hypertension Qualified Codes: I10 - Essential (primary) hypertension Chest pain Qualified Codes: R07.9 - Chest pain, unspecified Hypokalemia Abdominal pain Qualified Codes: R10.12 - Left upper quadrant pain COVID-19 ruled out by laboratory testing ER Course Patient is complex presenting with left-sided chest pain and left abdominal pain of a days duration. Differential includes acute myocardial infarction, acute coronary syndrome, gastritis, diverticulitis among viral syndrome, pancreatitis amongst others. Work-up has been initiated. Patient is complaining about increased pain and also his blood pressure is increasing and [id number] at this time. Further labs and CT of the chest and abdomen are ordered. We are unable to use contrast because of his history of allergy at this time. Consideration of anticoagulation if d-dimer is positive. The patient will be treated for pain at this time. As the patient's oxygen saturation is 100% on room air embolus is less likely at this time. Most likely this patient will need to be admitted for observation. EKG reviewed. Sinus tachycardia with ST inversions inferiorly no acute injury. Brief discussion with Dr. Christian who states he does not want to take the patient. He feels the patient is only drug seeking. If we need to transfer, then he wants me to tell the patient that he will not receive any pain medicine. COVID-19 test negative. Patient states his pain is up to an 8 after receiving Dilaudid 1 mg. BP still elevated after treating pain. Metoprolol ordered. Dr. Dove states to admit here as BP not controlled. Repeat metoprolol. Discussed with admitting MD as well as GI specialist who evaluated the patient in the ED. BP still high but improved. Laboratory Tests Test 05/14/20 05:00 05/14/20 05:05 05/14/20 05:20 05/14/20 06:45 Magnesium Level 1.8 MG/DL (1.8-2.4) Ferritin 14 NG/ML (8-388) Troponin I 0.000 ng/mL (0.000-0.056) C-Reactive Protein, Quantitative 0.7 mg/dL (0.00-0.90) White Blood Count 5.4 K/UL (4.8-10.8) Red Blood Count 4.55 M/UL (4.70-6.10) L Hemoglobin 11.9 G/DL (14.2-18.0) L Hematocrit 39.1 % (42.0-52.0) L Mean Corpuscular Volume 86 FL (80-99) Mean Corpuscular Hemoglobin 26.2 PG (27.0-31.0) L Mean Corpuscular Hemoglobin Concent 30.5 G/DL (32.0-36.0) L Red Cell Distribution Width 15.9 % (11.6-14.8) H Platelet Count 327 K/UL (150-450) Mean Platelet Volume 7.1 FL (6.5-10.1) Neutrophils (%) (Auto) 70.1 % (45.0-75.0) Lymphocytes (%) (Auto) 17.9 % (20.0-45.0) L Monocytes (%) (Auto) 8.7 % (1.0-10.0) Eosinophils (%) (Auto) 2.4 % (0.0-3.0) Basophils (%) (Auto) 0.9 % (0.0-2.0) Sodium Level 138 MMOL/L (136-145) Potassium Level 3.0 MMOL/L (3.5-5.1) L Chloride Level 100 MMOL/L (98-107) Carbon Dioxide Level 30 MMOL/L (21-32) Anion Gap 8 mmol/L (5-15) Blood Urea Nitrogen 13 mg/dL (7-18) Creatinine 1.1 MG/DL (0.55-1.30) Estimated Glomerular Filtration Rate > 60 mL/min (>60) Glucose Level 290 MG/DL (74-106) H Lactic Acid Level 1.00 mmol/L (0.4-2.0) Calcium Level 9.3 MG/DL (8.5-10.1) Total Bilirubin 0.3 MG/DL (0.2-1.0) Aspartate Amino Transferase (AST) 17 U/L (15-37) Alanine Aminotransferase (ALT) 20 U/L (12-78) Alkaline Phosphatase 87 U/L (46-116) Total Protein 8.1 G/DL (6.4-8.2) Albumin 3.9 G/DL (3.4-5.0) Globulin 4.2 g/dL Albumin/Globulin Ratio 0.9 (1.0-2.7) L Prothrombin Time 10.4 SEC (9.30-11.50) Prothrombin Time INR 0.9 (0.9-1.1) Activated Partial Thromboplast Time 24 SEC (23-33) D-Dimer 0.38 mg/L FEU (0.00-0.49) Urine Color Pale yellow Urine Appearance Clear Urine pH 7 (4.5-8.0) Urine Specific [place] 1.010 (1.005-1.035) Urine Protein 3+ (NEGATIVE) H Urine Glucose (UA) 4+ (NEGATIVE) H Urine Ketones Negative (NEGATIVE) Urine Blood 1+ (NEGATIVE) H Urine Nitrite Negative (NEGATIVE) Urine Bilirubin Negative (NEGATIVE) Urine Urobilinogen Normal MG/DL (0.0-1.0) Urine Leukocyte Esterase Negative (NEGATIVE) Urine RBC 0-2 /HPF (0 - 0) H Urine WBC 0-2 /HPF (0 - 0) Urine Squamous Epithelial Cells Occasional /LPF Urine Bacteria Occasional /HPF (NONE) Urine Opiates Screen Negative (NEGATIVE) Urine Barbiturates Screen Negative (NEGATIVE) Phencyclidine (PCP) Screen Negative (NEGATIVE) Urine Amphetamines Screen Negative (NEGATIVE) Urine Benzodiazepines Screen Positive (NEGATIVE) H Urine Cocaine Screen Negative (NEGATIVE) Urine Marijuana (THC) Screen Negative (NEGATIVE) Microbiology Date/Time Source Procedure Growth Status 05/14/20 07:35 Nasopharynx SARS-CoV-2 RdRp Gene Assay - Final Complete EKG Diagnostic Results Rate: tachycardiac Rhythm: NSR ST Segments: no acute changes - ST inversions inferiorly Rhythm Strip Diag. Results EP Interpretation: yes Rhythm: no PVC's, no ectopy, other - Sinus tachycardia 102 Chest X-Ray Diagnostic Results Chest X-Ray Diagnostic Results : Chest X-Ray Ordered: Yes # of Views/Limited/Complete: 1 View Indication: Chest Pain EP Interpretation: Yes Interpretation: no consolidation, no effusion, no pneumothorax, other - globular heart Impression: Other Electronically Signed by: Electronically signed by Yeyo Cornelius MD CT/MRI/US Diagnostic Results CT/MRI/US Diagnostic Results : Imaging Test Ordered: chest/abd/pelvis Impression IMPRESSION: Normal abdomen and pelvis CT. IMPRESSION: No acute findings in the chest. Last Vital Signs Date Time Temp Pulse Resp B/P (MAP) Pulse Ox O2 Delivery O2 Flow Rate FiO2 05/14/20 17:27 175/110 05/14/20 17:26 75 05/14/20 16:00 97.7 20 100 05/14/20 11:08 Room Air Status: improved Disposition: PLACE IN OBSERVATION Condition: Serious Referrals: [facility] Patient Instructions: Abdominal Pain, Adult Yeyo Cornelius MD May 14, 2020 06:49
[2020-05-14 07:05] LABS: INR 0.9 (0.9-1.1)
--- NOTE | 2020-05-14 07:12 | NUR ---
Nurse Note: Per Dr. Taylor, pt is being admitted for further observation. Called lab for add ons for blood test. Urine sent to lab, awaiting result. Report given ADAN Chow for contintuiy of care. Pt ambulated to restroom with steady gait. Pt stated he might have an episode of diarrhea. Pending CT; donor support technician aware.
--- NOTE | 2020-05-14 07:20 | NUR ---
ED Nurse Note: Recieved erport from pm nurse to resume care, pt ambulating from bathroom, states had large loose stool, recently medicated for pain, meds effective with pain level decreased to 5/10, pt replaced on monitoring, has patent saline lock in left hand, will continue to closely monitor while waiting for imaging.
[2020-05-14 07:32] LABS: APPEARANCE,URINE CLEAR; BILIRUBIN, URINE NEGATIVE (NEGATIVE); COLOR,URINE PALE YELLOW; GLUCOSE, URINE (UA) 4+ (NEGATIVE); KETONES,URINE NEGATIVE (NEGATIVE); LEUKOCYTE ESTERASE ,URINE NEGATIVE (NEGATIVE); NITRITE,URINE NEGATIVE (NEGATIVE); PH,URINE 7 (4.5-8.0); PROTEIN,URINE 3+ (NEGATIVE); UROBILINOGEN,URINE NORMAL MG/DL (0.0-1.0)
--- NOTE | 2020-05-14 08:17 | Diagnostic Imaging Report ---
EXAM: CT Abdomen and Pelvis Without Intravenous Contrast CLINICAL HISTORY: ABD PAIN TECHNIQUE: Axial computed tomography images of the abdomen and pelvis without intravenous contrast. CTDI is 10 mGy and DLP is 772 be mGy-cm. One or more of the following dose reduction techniques were used: automated exposure control, adjustment of the mA and/or kV according to patient size, use of iterative reconstruction technique. COMPARISON: No relevant prior studies available. FINDINGS: Lung bases: Unremarkable. No mass. No consolidation. ABDOMEN: Liver: Unremarkable. Gallbladder and bile ducts: Unremarkable. No calcified stones. No ductal dilation. Pancreas: Unremarkable. No ductal dilation. Spleen: Unremarkable. No splenomegaly. Adrenals: Unremarkable. No mass. Kidneys and ureters: Unremarkable. No obstructing stones. No hydronephrosis. Stomach and bowel: Unremarkable. No obstruction. No mucosal thickening. PELVIS: Appendix: No findings to suggest acute appendicitis. Bladder: Unremarkable. No stones. Reproductive: Unremarkable as visualized. ABDOMEN and PELVIS: Intraperitoneal space: Unremarkable. No free air. No significant fluid collection. Bones/joints: No acute fracture. No dislocation. Soft tissues: Unremarkable. Vasculature: Unremarkable. No abdominal aortic aneurysm. Lymph nodes: Unremarkable. No enlarged lymph nodes. IMPRESSION: Normal abdomen and pelvis CT. EXAM: CT Chest Without Intravenous Contrast CLINICAL HISTORY: ABD PAIN TECHNIQUE: Axial computed tomography images of the chest without intravenous contrast. CTDI is 10 mGy and DLP is 772 mGy-cm. One or more of the following dose reduction techniques were used: automated exposure control, adjustment of the mA and/or kV according to patient size, use of iterative reconstruction technique. COMPARISON: No relevant prior studies available. FINDINGS: Lungs: Unremarkable. No mass. No consolidation. Pleural space: Unremarkable. No pneumothorax. No significant effusion. Heart: Mild cardiomegaly. No significant pericardial effusion. Bones/joints: Unremarkable. No acute fracture. No dislocation. Soft tissues: Unremarkable. Vasculature: Unremarkable. No thoracic aortic aneurysm. Lymph nodes: Unremarkable. No enlarged lymph nodes. IMPRESSION: No acute findings in the chest.
[2020-05-14] MEDS ORDERED: Metoprolol Tartrate 5mg/5ml Inj IVP STA ×2 (08:24→09:30)
[2020-05-14] MEDS ORDERED: Metoprolol Tartrate 5mg/5ml Inj ONE (08:27)
--- NOTE | 2020-05-14 09:00 | NUR ---
ED Nurse Note: Pt completed all ordered test, pt is to be admitted to hospital, waiting for info of to transfer or admit here, pt remains awake and alert, conversing with family on phone, pt states pain is returning at 8/10 and asking for more dilaudid, informed, will re-medicate and prepae for admission, pt b/p is slightly elevated also, MD informed and b/p meds ordered, will monitor for effectiveness.
--- NOTE | 2020-05-14 09:45 | NUR ---
ED Nurse Note: Pt re-medicated for pain, meds given effective with pain level at 4/10, pt also tolerating ice chips without complications, no diarrhea noted or emesis, pt b/p remains elevated, MD informed, med orders given again, also pt is to be admitted here, will prepare for admission and monitor b/p.
--- NOTE | 2020-05-14 10:05 | NUR ---
ED Nurse Note: Pt has room for admission, report called to floor nurse, pt remains in bed awake and alert, belongings list completed and with pt, pt being taken to unit via gurney with RN and er-tech, nad noted during pt transport to floor. pt b/p remains elevated and MD is aware, states admitting md aware and will handle.
--- NOTE | 2020-05-14 10:15 | NUR ---
NURSE NOTES: Patient transferred from ED via gurney to room 219-2. Patient awake, alert and oriented x4, able to make needs known, complaining of left upper abdominal pain at this time. [employer] technical lead senior developer placed and reading sinus rhythm. Belonging list check done with transferring nurse. Patient has two cell phones with chargers. IV on Right hand 22g, intact and clean. Vitals taken. BP running high at this time, will follow up with admitting doctor. orient to room, restroom and call light. Fall precaution measure done. encouraged to use call light when needed. Will contact Primary MD for admission orders.
[2020-05-14] MEDS ORDERED: HYDROmorphone 2mg tab ORAL SCH (11:45)
[2020-05-14] MEDS ORDERED: oxyCODONE 15mg IR tab ORAL PRN (11:45)
--- NOTE | 2020-05-14 12:01 | NUR ---
NURSE NOTES: Called dr. Holder for pain medication, Referred me to call dr. Ortiz.
--- NOTE | 2020-05-14 12:14 | History and Physical Report ---
DATE OF ADMISSION: 05/14/2020 TIME SEEN: At 9 a.m. CONSULTANTS: 1. Dion Almendarez MD. 2. Ronald Ortiz MD. 3. Kat Martinez MD. 4. Chirag Barnes MD. CHIEF COMPLAINT: Abdominal pain. BRIEF HISTORY: The patient is a 45-year-old male, who lives at home, presents with increased abdominal pain for nine days with nausea, vomiting, and diarrhea as well, came into [facility], diagnosed with the above, and hypokalemia and was being admitted to medical floor. Currently, slightly anxious in bed, oriented x3, in slight distress secondary to abdominal pain. PAST MEDICAL HISTORY: Includes hypertension, diabetes, anxiety, PTSD. PAST SURGICAL HISTORY: Hernia x2, pneumothorax, back surgery. MEDICATIONS: Include Dilaudid, Lopressor, K-Dur, Zofran. ALLERGIES: Sulfa, amlodipine, aspirin, atenolol, diphenhydramine, , hydralazine, hydrochlorothiazide, labetalol, lisinopril, loratadine and morphine. SOCIAL HISTORY: The patient states no smoking, no alcohol, no intravenous drug abuse. FAMILY HISTORY: Noncontributory. PHYSICAL EXAMINATION: GENERAL: Slightly anxious in ER [facility], oriented x3, in slight distress secondary to abdominal pain. VITAL SIGNS: Temperature is 98, pulse 89, respirations 13, blood pressure . CARDIOVASCULAR: No murmur. LUNGS: Distant and clear. ABDOMEN: Bowel sounds positive. Soft. Slightly tender. No guarding. No rigidity. No rebound. EXTREMITIES: Show no cyanosis, clubbing, or edema. NEUROLOGIC: The patient moves all extremities, slightly weak. LABORATORY AND DIAGNOSTIC DATA: Labs at this time show hemoglobin and hematocrit 11/39, otherwise CBC is normal. BMP shows potassium 3.0, glucose 290, otherwise normal. INR is 0.9. PTT 24. Urinalysis show 1+ blood, 3+ protein, 4+ glucose. Urine tox positive for benzos. ASSESSMENT: 1. Abdominal pain. 2. Hypertensive urgency. 3. Anemia. 4. Hypokalemia. 5. Diabetes. 6. Hyperglycemia. 7. PTSD. 8. Anxiety. PLAN: 1. NPO. 2. IV fluids. 3. Blood pressure, blood sugar, and pain control. 4. Resume home medications. 5. We will add Cardiology and Nephrology evaluation. 6. We will continue to follow this patient medically. 7. PT and dietary evaluation. 8. CBC and BMP in the morning. John Holder D.O. DR: SAAD JOB#: [id number] CC:
[2020-05-14] MEDS: cloNIDine 0.2mg Tab ORAL SCH ×2 (13:20→17:27)
--- NOTE | 2020-05-14 13:50 | NUR ---
NURSE NOTES: Left message with Dr. Ortiz for pain medication, No response.
--- NOTE | 2020-05-14 14:37 | Cardiac Electrophysiology PN ---
Subjective Subjective [id number] Objective Last 24 Hour Vital Signs Date Time Temp Pulse Resp B/P (MAP) Pulse Ox O2 Delivery O2 Flow Rate FiO2 05/14/20 13:20 195/117 05/14/20 12:00 89 05/14/20 11:08 96.3 75 18 195/117 (143) 97 05/14/20 11:08 Room Air 05/14/20 10:20 98.3 83 16 193/130 100 Room Air 05/14/20 10:00 98.3 83 16 185/120 100 Room Air 05/14/20 09:35 83 193/130 05/14/20 09:30 98.3 83 16 193/130 100 Room Air 05/14/20 09:24 98.3 05/14/20 08:54 89 201/115 05/14/20 08:30 98.3 89 13 201/115 100 Room Air 05/14/20 08:19 97.4 95 13 207/113 100 Room Air 05/14/20 07:31 98.7 05/14/20 07:05 98.7 98 16 192/102 99 Room Air 05/14/20 06:02 98.7 05/14/20 04:25 102 16 Room Air 05/14/20 04:25 98.7 102 16 162/100 99 Room Air 05/14/20 04:22 99.0 80 16 138/90 (106) 98 Room Air Intake and Output 05/13/20 05/14/20 19:00 07:00 Intake Total 1000 ml Balance 1000 ml IV Total 1000 ml Laboratory Tests Test 05/14/20 05:00 05/14/20 05:05 05/14/20 05:20 05/14/20 06:45 Magnesium Level 1.8 MG/DL (1.8-2.4) Ferritin 14 NG/ML (8-388) Troponin I 0.000 ng/mL (0.000-0.056) C-Reactive Protein, Quantitative 0.7 mg/dL (0.00-0.90) White Blood Count 5.4 K/UL (4.8-10.8) Red Blood Count 4.55 M/UL (4.70-6.10) L Hemoglobin 11.9 G/DL (14.2-18.0) L Hematocrit 39.1 % (42.0-52.0) L Mean Corpuscular Volume 86 FL (80-99) Mean Corpuscular Hemoglobin 26.2 PG (27.0-31.0) L Mean Corpuscular Hemoglobin Concent 30.5 G/DL (32.0-36.0) L Red Cell Distribution Width 15.9 % (11.6-14.8) H Platelet Count 327 K/UL (150-450) Mean Platelet Volume 7.1 FL (6.5-10.1) Neutrophils (%) (Auto) 70.1 % (45.0-75.0) Lymphocytes (%) (Auto) 17.9 % (20.0-45.0) L Monocytes (%) (Auto) 8.7 % (1.0-10.0) Eosinophils (%) (Auto) 2.4 % (0.0-3.0) Basophils (%) (Auto) 0.9 % (0.0-2.0) Sodium Level 138 MMOL/L (136-145) Potassium Level 3.0 MMOL/L (3.5-5.1) L Chloride Level 100 MMOL/L (98-107) Carbon Dioxide Level 30 MMOL/L (21-32) Anion Gap 8 mmol/L (5-15) Blood Urea Nitrogen 13 mg/dL (7-18) Creatinine 1.1 MG/DL (0.55-1.30) Estimat Glomerular Filtration Rate > 60 mL/min (>60) Glucose Level 290 MG/DL (74-106) H Lactic Acid Level 1.00 mmol/L (0.4-2.0) Calcium Level 9.3 MG/DL (8.5-10.1) Total Bilirubin 0.3 MG/DL (0.2-1.0) Aspartate Amino Transf (AST/SGOT) 17 U/L (15-37) Alanine Aminotransferase (ALT/SGPT) 20 U/L (12-78) Alkaline Phosphatase 87 U/L (46-116) Total Protein 8.1 G/DL (6.4-8.2) Albumin 3.9 G/DL (3.4-5.0) Globulin 4.2 g/dL Albumin/Globulin Ratio 0.9 (1.0-2.7) L Prothrombin Time 10.4 SEC (9.30-11.50) Prothromb Time International Ratio 0.9 (0.9-1.1) Activated Partial Thromboplast Time 24 SEC (23-33) D-Dimer 0.38 mg/L FEU (0.00-0.49) Urine Color Pale yellow Urine Appearance Clear Urine pH 7 (4.5-8.0) Urine Specific [place] 1.010 (1.005-1.035) Urine Protein 3+ (NEGATIVE) H Urine Glucose (UA) 4+ (NEGATIVE) H Urine Ketones Negative (NEGATIVE) Urine Blood 1+ (NEGATIVE) H Urine Nitrite Negative (NEGATIVE) Urine Bilirubin Negative (NEGATIVE) Urine Urobilinogen Normal MG/DL (0.0-1.0) Urine Leukocyte Esterase Negative (NEGATIVE) Urine RBC 0-2 /HPF (0 - 0) H Urine WBC 0-2 /HPF (0 - 0) Urine Squamous Epithelial Cells Occasional /LPF Urine Bacteria Occasional /HPF (NONE) Urine Opiates Screen Negative (NEGATIVE) Urine Barbiturates Screen Negative (NEGATIVE) Phencyclidine (PCP) Screen Negative (NEGATIVE) Urine Amphetamines Screen Negative (NEGATIVE) Urine Benzodiazepines Screen Positive (NEGATIVE) H Urine Cocaine Screen Negative (NEGATIVE) Urine Marijuana (THC) Screen Negative (NEGATIVE) Microbiology Date/Time Source Procedure Growth Status 05/14/20 07:35 Nasopharynx SARS-CoV-2 RdRp Gene Assay - Final Complete Chirag Barnes MD May 14, 2020 14:37
[2020-05-14] MEDS: NovoLOG Insulin Flexpen SUBQ SCH ×2 (17:24→21:39)
--- NOTE | 2020-05-14 19:29 | Consultation ---
DATE OF CONSULTATION: 05/14/2020 GASTROENTEROLOGY CONSULTATION CONSULTING PHYSICIAN: Fatoumata Ross MD REFERRING PHYSICIAN: John Holder DO CHIEF COMPLAINT: I was asked to see this patient by Dr. John Holder for evaluation of abdominal pain. HISTORY OF PRESENT ILLNESS: The patient is a 45-year-old man with multiple medical problems including diabetes, who comes in to the hospital due to 1-day history of abdominal pain. He says the pain is more on the left side, perhaps more on the left upper side. He had 3 episodes of vomiting yesterday and diarrhea. He has been on omeprazole for long-term for acid control. He has not had endoscopy or colonoscopy before. He is on long-term pain medications for his back pain. PAST MEDICAL HISTORY: History of diabetes, hypertension, anxiety, and degenerative joint disease with spinal stenosis. MEDICATIONS: Insulin, nitroglycerin, atenolol, morphine, lisinopril, Valium, clonidine, carvedilol, and Dilaudid. FAMILY HISTORY: Noncontributory. SOCIAL HISTORY: The patient is single. He does not smoke or drink alcohol at this time. REVIEW OF SYSTEMS: Otherwise negative. PHYSICAL EXAMINATION: GENERAL: A well-developed, well-nourished man seen in his room in the emergency room. HEENT: Normocephalic and atraumatic. Sclerae anicteric. Oropharynx clear. NECK: Supple. CHEST: Clear to auscultation. CARDIAC: Revealed regular rate. ABDOMEN: Soft and mildly tender in the left side without guarding or rebound. EXTREMITIES: Revealed no edema. LABORATORY DATA: Noted. ASSESSMENT: This patient presents with abdominal pain, nausea, vomiting, and diarrhea, but all of which have been going on for 24 hours in duration. Differential diagnoses would most notably include viral gastroenteritis, which should be self-limiting. Other pathologies can be considered only if the patient's symptoms persist. In the meantime, his stools can be checked for bacterial pathogens such as Salmonella or Clostridium difficile. His oral diet can be continued for now. RECOMMENDATIONS: 1. Check stool cultures. 2. IV fluids. 3. Oral diet as tolerated. 4. Follow laboratory parameters and exam. Thank you for asking me to participate in the care of this patient. Fatoumata Ross M.D. DR: Leatha JOB#: [id number] CC:
--- NOTE | 2020-05-14 19:40 | NUR ---
NURSE HAND-OFF REPORT: Important Events on Shift:Pain Management Patient Status: Stable Diet: Cardiac Pending Orders: NA Pending Results/Labs:OB stool Pending MD notification:NA Latest Vital Signs: Temperature 97.7 , Pulse 75 , B/P 175 /110 , Respiratory Rate 20 , O2 SAT 100 , Room Air, O2 Flow Rate . Vital Sign Comment: Stable EKG Rhythm: Sinus Rhythm Rhythm change?: N MD Notified?: - MD Response: Latest Mosley Fall Score: 20 Fall Risk: Low Risk Safety Measures: Call light Within Reach, Bed Alarm Zone 1, Side Rails Side Rails x2, Bed position Low and Locked. Fall Precautions: Patient Fall Education Report given to Lyndsey/ADAN.
--- NOTE | 2020-05-14 19:45 | NUR ---
NURSE NOTES: Patient is awake, alert and oriented x4, complaining of back and left upper abdominal pain . IV on Right hand 22g, intact. Encouraged to use call light when needed. Contacting primary MD and consults for medication especially pain medication orders. Called nurse radiology supervisor as day nurse stated she already tried to call and could not reach Dr Ortiz. will attempt again
[2020-05-14] MEDS ORDERED: Carvedilol 12.5mg tab ORAL SCH (21:00)
[2020-05-14] MEDS: Carvedilol 25mg Tab ORAL SCH (21:38)
--- NOTE | 2020-05-14 23:00 | NUR ---
NURSE NOTES: Dr Ortiz said to give methadone for pain as scheduled and roxicodone for BTP only. Dr Martinez put in anxiety med ativan q 6 prn. Gallo said to contact Dr Martinez and Dr Boone and Cameron
[2020-05-14] MEDS: oxyCODONE 15mg IR tab ORAL PRN (23:22)
[2020-05-14] MEDS: LORazepam 0.5mg tab ORAL PRN (23:22)
--- NOTE | 2020-05-14 23:44 | Consultation ---
DATE OF CONSULTATION: 05/14/2020 CARDIOLOGY CONSULTATION CONSULTING PHYSICIAN: Chirag Barnes MD REFERRING PHYSICIAN: John Holder MD REASON FOR CONSULTATION: Management of hypertension and epigastric pain. HISTORY OF PRESENT ILLNESS: The patient is a 45-year-old gentleman with history of hypertension and history of noncompliance, presented to the emergency room with left upper abdominal pain and chest pain with radiation to his shoulder. The patient's abdominal pain, however, radiates to his legs. The patient received one dose of fentanyl but the pain has returned. The patient also had headache and blood pressure to the emergency room. The patient has history of pulmonary emboli in the past anticoagulation in September of this year and is requesting to be started on anticoagulation. He says he has a reduced ejection fraction, but his nuclear stress test in 2005 showed EF of 53%. REVIEW OF SYSTEMS: Negative other than what was mentioned in history of present illness. PAST MEDICAL HISTORY: As mentioned above. FAMILY HISTORY: Noncontributory. ALLERGIES: He has multiple drug allergies including hydralazine, amlodipine, aspirin, atenolol, labetalol, hydrochlorothiazide, lisinopril, morphine, nicardipine, nitroglycerin, penicillin, peanuts, and shellfish. PHYSICAL EXAMINATION: VITAL SIGNS: Blood pressure of 194/117, pulse is 89, respirations 18, and he is afebrile. HEAD AND NECK: Showed no JVD. LUNGS: Clear. CARDIOVASCULAR: Shows regular S1 and S2 with no gallop or murmur. ABDOMEN: Soft. EXTREMITIES: No pitting edema. LABORATORY AND DIAGNOSTIC DATA: Labs show white count of 5.4, hemoglobin 11.9, hematocrit of 39, and platelet count is 327. Sodium 138, potassium 3.0, BUN of 13, creatinine of 1. Troponin negative x2. Urine toxicology is positive for benzodiazepine. In December 2018, it was positive for amphetamine. ASSESSMENT AND PLAN: 1. Accelerated hypertension. Increase the Coreg to 25 mg b.i.d. The patient is also on Procardia 60 mg b.i.d. and clonidine 0.2 mg b.i.d. that would be continued. I will add p.r.n. clonidine to his medical regimen. 2. Chest pain. Troponins are negative. We will get a repeat EKG and echocardiogram for further evaluation. 3. History of pulmonary embolus. The patient underwent a CT of the chest, abdomen, and pelvis that showed no acute findings, and a CT of abdomen and pelvis was also normal. 4. History of noncompliance. 5. History of depression and anxiety. Thank you very much for allowing me to participate in the care of this patient. Please do not hesitate to contact me for any questions regarding my evaluation. Sincerely, Chirag Barnes M.D. DR: Hans JOB#: [id number] CC:
[2020-05-15] VITALS (7 sets, daily range): BP systolic 130–180; BP diastolic 86–110
--- NOTE | 2020-05-15 04:00 | NUR ---
NURSE NOTES: Informed MD Holder that pt does not have an IV and does not want one reinserted
[2020-05-15] MEDS: oxyCODONE 15mg IR tab ORAL PRN (05:57)
[2020-05-15] MEDS: LORazepam 0.5mg tab ORAL PRN ×3 (05:57→18:07)
[2020-05-15] MEDS: NovoLOG Insulin Flexpen SUBQ SCH ×4 (06:09→20:35)
[2020-05-15 07:35] LABS: HEMATOCRIT 34.7 % (42.0-52.0); HEMOGLOBIN 10.6 G/DL (14.2-18.0); MEAN CORPUSCULAR VOLUME 85 FL (80-99); PLATELET COUNT 254 K/UL (150-450); RED BLOOD COUNT 4.06 M/UL (4.70-6.10); RED CELL DISTRIBUTION WIDTH 15.7 % (11.6-14.8); WHITE BLOOD COUNT 3.1 K/UL (4.8-10.8)
[2020-05-15 07:59] LABS: ANION GAP 7 mmol/L (5-15); BLOOD UREA NITROGEN 15 mg/dL (7-18); CARBON DIOXIDE 30 MMOL/L (21-32); CHLORIDE 102 MMOL/L (98-107); CREATININE 1.2 MG/DL (0.55-1.30); POTASSIUM 3.7 MMOL/L (3.5-5.1); SODIUM 139 MMOL/L (136-145)
--- NOTE | 2020-05-15 08:01 | NUR ---
NURSE NOTES: Received pt from DAAN Solorio, pt is awake and alert, pt is in RA, no SOB or acute respiratory distress noted. pt is on continues heart monitoring. pt has no intact iv access and refuses to have one, is aware. Dr Holder visited pt and will F/U for complaining pain. all needs attended, bed is locked and is in the lowest position, call light within easy reach. will continue to monitor.
--- NOTE | 2020-05-15 08:06 | NUR ---
NURSE HAND-OFF REPORT: Important Events on Shift:Pain Management Patient Status: Stable Diet: Cardiac Pending Orders: to see Dr Ortiz- pt is requesting for pain management and is unhappy with current pain regimen Pending Results/Labs:OB stool, c diff stool, labs this am Pending MD notification:NA Latest Vital Signs: Temperature 97.7 , Pulse 75 , B/P 155/97 Respiratory Rate 20 , O2 SAT 100 , Room Air, Vital Sign Comment: hypertensive EKG Rhythm: Sinus Rhythm Rhythm change?: N Latest Mosley Fall Score: 20 Fall Risk: Low Risk Safety Measures: Call light Within Reach, Bed Alarm Zone 1, Side Rails Side Rails x2, Bed position Low and Locked. Fall Precautions: Patient Fall Education Report given to Afsoon/RN.
--- NOTE | 2020-05-15 08:34 | General Progress Note ---
Assessment/Plan Problem List: (1) PTSD (post-traumatic stress disorder) ICD Codes: F43.10 - Post-traumatic stress disorder, unspecified SNOMED: 24705796 (2) Chronic pain disorder ICD Codes: G89.4 - Chronic pain syndrome SNOMED: 963319796 (3) Hypertensive urgency ICD Codes: I16.0 - Hypertensive urgency SNOMED: 511599492 (4) Abdominal pain ICD Codes: R10.9 - Unspecified abdominal pain SNOMED: 46832042 Qualifiers: Qualified Codes: R10.12 - Left upper quadrant pain Status: unchanged Assessment/Plan: pain bp control pt diet cbc bmp am Subjective Constitutional: Reports: weakness Allergies: Coded Allergies: HYDRALAZINE (Verified Allergy, Severe, angio edema, 01/11/18) angio edema ETODOLAC (Unverified Allergy, Mild, 01/11/18) AMLODIPINE (Unverified Allergy, Unknown, 01/11/18) tolerates nifedipine 04/18/16 ASPIRIN (Verified Allergy, Unknown, 01/11/18) ATENOLOL (Verified Allergy, Unknown, 01/11/18) tolerates metoprolol 04/18/16 DIPHENHYDRAMINE (Verified Allergy, Unknown, 01/11/18) HYDROCHLOROTHIAZIDE (Verified Allergy, Unknown, 01/11/18) LABETALOL (Verified Allergy, Unknown, 01/11/18) tolerates metoprolol 04/18/16 LISINOPRIL (Unverified Allergy, Unknown, 01/10/16) LORATADINE (Verified Allergy, Unknown, 01/11/18) MILK (Verified Allergy, Unknown, 01/11/18) MORPHINE (Verified Allergy, Unknown, 01/11/18) NICARDIPINE (Verified Allergy, Unknown, 01/11/18) tolerates nifedipine 04/18/16 NITROGLYCERIN (Unverified Allergy, Unknown, 01/11/18) PENICILLINS (Unverified Allergy, Unknown, 01/11/18) tolerates cephalexin 04/18/16 [place] Nut (Verified Allergy, Unknown, 01/11/18) SHELLFISH DERIVED (Verified Allergy, Unknown, 01/11/18) All Systems: reviewed and negative except above Subjective sl agitated c/o pain Objective Last 24 Hour Vital Signs Date Time Temp Pulse Resp B/P (MAP) Pulse Ox O2 Delivery O2 Flow Rate FiO2 05/15/20 06:27 85 20 155/99 97 05/15/20 05:57 85 20 155/99 97 05/15/20 04:17 96.8 85 20 155/99 (117) 97 05/15/20 04:00 83 05/15/20 00:00 87 05/15/20 00:00 97.7 90 20 180/110 (133) 97 05/14/20 23:22 75 20 175/110 100 05/14/20 21:38 75 175/110 05/14/20 21:00 Room Air 05/14/20 20:00 72 05/14/20 20:00 97.7 79 20 182/116 (138) 95 05/14/20 17:27 175/110 05/14/20 17:26 75 175/110 05/14/20 16:00 97.7 75 20 175/110 (131) 100 05/14/20 16:00 71 05/14/20 13:20 195/117 05/14/20 12:00 89 05/14/20 11:08 96.3 75 18 195/117 (143) 97 05/14/20 11:08 Room Air 05/14/20 10:20 98.3 83 16 193/130 100 Room Air 05/14/20 10:00 98.3 83 16 185/120 100 Room Air 05/14/20 09:35 83 193/130 05/14/20 09:30 98.3 83 16 193/130 100 Room Air 05/14/20 09:24 98.3 05/14/20 08:54 89 201/115 Intake and Output 05/14/20 05/15/20 19:00 07:00 Intake Total 940 ml 280 ml Balance 940 ml 280 ml Intake Oral 940 ml 280 ml # Voids 2 2 # Bowel Movements 2 Laboratory Tests 05/14/20 17:09: POC Whole Blood Glucose [Pending] 05/14/20 21:08: POC Whole Blood Glucose 237H 05/15/20 06:01: POC Whole Blood Glucose 333H 05/15/20 06:06: White Blood Count 3.1L, Red Blood Count 4.06L, Hemoglobin 10.6L, Hematocrit 34.7L, Mean Corpuscular Volume 85, Mean Corpuscular Hemoglobin 26.0L, Mean Corpuscular Hemoglobin Concent 30.4L, Red Cell Distribution Width 15.7H, Platelet Count 254, Mean Platelet Volume 7.9, Neutrophils (%) (Auto) , Lymphocytes (%) (Auto) , Monocytes (%) (Auto) , Eosinophils (%) (Auto) , Basophils (%) (Auto) , Neutrophils % (Manual) [Pending], Lymphocytes % (Manual) [Pending], Platelet Estimate [Pending], Platelet Morphology [Pending], Sodium Level [Pending], Potassium Level [Pending], Chloride Level [Pending], Carbon Dioxide Level [Pending], Anion Gap 7, Blood Urea Nitrogen [Pending], Creatinine [Pending], Estimat Glomerular Filtration Rate [Pending], Glucose Level [Pending] , Uric Acid [Pending], Calcium Level [Pending], Phosphorus Level [Pending], Magnesium Level [Pending], Iron Level [Pending], Unsaturated Iron Binding [ Pending], Ferritin [Pending], Total Bilirubin [Pending], Direct Bilirubin [ Pending], Aspartate Amino Transf (AST/SGOT) [Pending], Alanine Aminotransferase (ALT/SGPT) [Pending], Alkaline Phosphatase [Pending], Troponin I 0.002, Total Protein [Pending], Albumin [Pending], Globulin [Pending], Vitamin B12 Level [ Pending], Folate [Pending] Height (Feet): 6 Height (Inches): 2.00 Weight (Pounds): 234 General Appearance: alert EENT: normal ENT inspection Neck: normal alignment Cardiovascular: normal peripheral pulses, normal rate, regular rhythm Respiratory/Chest: chest wall non-tender, lungs clear, normal breath sounds Abdomen: normal bowel sounds, non tender, soft Extremities: normal inspection Edema: no edema noted Arm (L), no edema noted Arm (R), no edema noted Leg (L), no edema noted Leg (R), no edema noted Pedal (L), no edema noted Pedal (R), no edema noted Generalized Neurologic: responsive, motor weakness Skin: normal pigmentation, warm/dry John Holder DO May 15, 2020 08:34
[2020-05-15] MEDS: Carvedilol 25mg Tab ORAL SCH ×2 (08:41→20:33)
[2020-05-15] MEDS: cloNIDine 0.2mg Tab ORAL SCH ×2 (08:41→17:04)
[2020-05-15 08:52] LABS: ALANINE AMINOTRANSFERASE 17 U/L (12-78); ALBUMIN 3.3 G/DL (3.4-5.0); ALKALINE PHOSPHATASE 84 U/L (46-116); ASPARTATE AMINO TRANSFERASE 13 U/L (15-37); BILIRUBIN,DIRECT < 0.1 MG/DL (0.0-0.3); BILIRUBIN,TOTAL 0.3 MG/DL (0.2-1.0); FERRITIN 13 NG/ML (8-388); PHOSPHORUS 3.4 MG/DL (2.5-4.9)
--- NOTE | 2020-05-15 08:53 | Consultation ---
Consult Note Consult Note I am asked to evaluate the patient at the request of Dr. Holder for electrolyte imbalances and proteinuria Patient hard to get any history. When seen he only is asking for pain medications. 45-year-old male with one episode of vomiting and diarrhea earlier tonight and generalized abdominal pain. Patient says that he was eating dinner and then several hours later began to feel generalized abdominal cramping and pain and vomited once and had one episode of diarrhea. Vomiting was nonbilious nonbloody , only occurred 1 time. He had one episode of diarrhea nonbloody. Pain is sharp in nature, located diffusely, poorly localized. He is in no distress whatsoever in the emergency department. Denies fevers, chills, chest pain, palpitation, shortness of breath, back pain, dysuria, hematuria. Patient claims that he has CHF with an ejection fraction of 16% and 2 pulmonary embolisms in the past but not on any anticoagulation because "they said I did not need it anymore." On arrival the patient was immediately demanding Dilaudid and became very agitated when I told him that there was no indication for this. ER note:: Allergies: Coded Allergies: HYDRALAZINE (Verified Allergy, Severe, angio edema, 01/11/18) angio edema ETODOLAC (Unverified Allergy, Mild, 01/11/18) AMLODIPINE (Unverified Allergy, Unknown, 01/11/18) tolerates nifedipine 04/18/16 ASPIRIN (Verified Allergy, Unknown, 01/11/18) ATENOLOL (Verified Allergy, Unknown, 01/11/18) tolerates metoprolol 04/18/16 DIPHENHYDRAMINE (Verified Allergy, Unknown, 01/11/18) HYDROCHLOROTHIAZIDE (Verified Allergy, Unknown, 01/11/18) LABETALOL (Verified Allergy, Unknown, 01/11/18) tolerates metoprolol 04/18/16 LISINOPRIL (Unverified Allergy, Unknown, 01/10/16) LORATADINE (Verified Allergy, Unknown, 01/11/18) MILK (Verified Allergy, Unknown, 01/11/18) MORPHINE (Verified Allergy, Unknown, 01/11/18) NICARDIPINE (Verified Allergy, Unknown, 01/11/18) tolerates nifedipine 04/18/16 NITROGLYCERIN (Unverified Allergy, Unknown, 01/11/18) PENICILLINS (Unverified Allergy, Unknown, 01/11/18) tolerates cephalexin 04/18/16 [place] Nut (Verified Allergy, Unknown, 01/11/18) SHELLFISH DERIVED (Verified Allergy, Unknown, 01/11/18) COVID-19 Screening Contact w/high risk pt: No Experienced COVID-19 symptoms?: No COVID-19 Testing performed BUSINESS BROKER: No Past Medical History: No History, Except For Hx Cardiac Problems: Yes - loop recorder placed in 2019 Hx Hypertension: Yes Hx Diabetes: Yes Hx Gastrointestinal Problems: Yes - peptic ulcer Hx Dialysis: No - spinal stenosis Hx Neurological Problems: Yes - spinal stenosis Assessment/Plan 45-year-old male is admitted with chest pain rule out coronary artery disease He has history of diabetes mellitus and hypertension He has 3+ proteinuria that indicative of nephropathy due to hypertension and or diabetes mellitus Renal parameters and electrolytes are all normal today Patient argumentative and demanding pain shots for having pain all over his body I explained to the patient that I am a kidney consultants and not the painter spray , he he however at the end told me not to come back since I think I am smarter than him !!! Suggestions: Blood pressure management per cardiology advice, already in place Blood sugar management Will sign off at this time since the patient is not willing to see me for not giving him pain medication Discussed with RN Afsoon Defer pain medication to painter spray Thank you Nitin Boone MD May 15, 2020 08:53
--- NOTE | 2020-05-15 08:53 | NUR ---
NURSE NOTES: PT REFUSES NIFEDIPINE NOW AND ASK TO HAVE IT 12PM.
[2020-05-15 09:07] LABS: IRON 28 ug/dL (50-175); TOTAL IRON BINDING CAPACITY 375 ug/dL (250-450)
[2020-05-15 09:09] LABS: % IRON SATURATION 7 % (15-50)
--- NOTE | 2020-05-15 10:09 | Consultation ---
History of Present Illness General Date patient seen: May 15, 2020 Chief Complaint: Present Illness Allergies: Coded Allergies: HYDRALAZINE (Verified Allergy, Severe, angio edema, 01/11/18) angio edema ETODOLAC (Unverified Allergy, Mild, 01/11/18) AMLODIPINE (Unverified Allergy, Unknown, 01/11/18) tolerates nifedipine 04/18/16 ASPIRIN (Verified Allergy, Unknown, 01/11/18) ATENOLOL (Verified Allergy, Unknown, 01/11/18) tolerates metoprolol 04/18/16 DIPHENHYDRAMINE (Verified Allergy, Unknown, 01/11/18) HYDROCHLOROTHIAZIDE (Verified Allergy, Unknown, 01/11/18) LABETALOL (Verified Allergy, Unknown, 01/11/18) tolerates metoprolol 04/18/16 LISINOPRIL (Unverified Allergy, Unknown, 01/10/16) LORATADINE (Verified Allergy, Unknown, 01/11/18) MILK (Verified Allergy, Unknown, 01/11/18) MORPHINE (Verified Allergy, Unknown, 01/11/18) NICARDIPINE (Verified Allergy, Unknown, 01/11/18) tolerates nifedipine 04/18/16 NITROGLYCERIN (Unverified Allergy, Unknown, 01/11/18) PENICILLINS (Unverified Allergy, Unknown, 01/11/18) tolerates cephalexin 04/18/16 [place] Nut (Verified Allergy, Unknown, 01/11/18) SHELLFISH DERIVED (Verified Allergy, Unknown, 01/11/18) Medication History Scheduled Citalopram Hydrobromide* (Celexa*), 20 MG ORAL DAILY, (Reported) Citalopram Hydrobromide* (Celexa*), 20 MG ORAL DAILY Clonidine HCl (Clonidine HCl), 0.3 MG PO THREE TIMES A DAY, (Reported) Clorazepate Dipotassium (Tranxene T-Tab), 7.5 MG PO TWICE A DAY, (Reported) Hydromorphone HCl (Dilaudid), 2 MG ORAL Q4H Insulin Glargine (Lantus), 35 SUBQ BEDTIME, (Reported) Losartan Potassium (Cozaar), 100 MG ORAL DAILY, (Reported) Metoprolol Tartrate* (Metoprolol Tartrate*), 50 MG ORAL BID, (Reported) Nifedipine Er* (Adalat Cc*), 60 MG ORAL TWICE A DAY, (Reported) Scheduled PRN Diazepam* (Valium*), 10 MG ORAL TID PRN for ANXIETY, (Reported) Esomeprazole Magnesium (Nexium), 20 MG ORAL DAILY PRN for AD, (Reported) Hydrocodone Bit/Acetaminophen 10-325* ([place] 10-325*), 1 TAB ORAL Q4H PRN for For Pain, (Reported) OXYCODONE HCl* (Roxicodone*), 15 MG ORAL Q6H PRN for For Pain, (Reported) Miscellaneous Medications Insulin Lispro (Humalog), 0 SUBQ, (Reported) Patient History Healthcare decision maker Resuscitation status Advanced Directive on File Physical Exam Last 24 Hour Vital Signs Date Time Temp Pulse Resp B/P (MAP) Pulse Ox O2 Delivery O2 Flow Rate FiO2 05/15/20 08:41 93 180/107 05/15/20 08:41 180/107 05/15/20 08:00 97.0 93 20 180/107 (131) 98 05/15/20 07:48 89 05/15/20 06:27 85 20 155/99 97 05/15/20 05:57 85 20 155/99 97 05/15/20 04:17 96.8 85 20 155/99 (117) 97 05/15/20 04:00 83 05/15/20 00:00 87 05/15/20 00:00 97.7 90 20 180/110 (133) 97 05/14/20 23:22 75 20 175/110 100 05/14/20 21:38 75 175/110 05/14/20 21:00 Room Air 05/14/20 20:00 72 05/14/20 20:00 97.7 79 20 182/116 (138) 95 05/14/20 17:27 175/110 05/14/20 17:26 75 175/110 05/14/20 16:00 97.7 75 20 175/110 (131) 100 05/14/20 16:00 71 05/14/20 13:20 195/117 05/14/20 12:00 89 05/14/20 11:08 96.3 75 18 195/117 (143) 97 05/14/20 11:08 Room Air 05/14/20 10:20 98.3 83 16 193/130 100 Room Air Intake and Output 05/14/20 05/15/20 19:00 07:00 Intake Total 940 ml 280 ml Balance 940 ml 280 ml Intake Oral 940 ml 280 ml # Voids 2 2 # Bowel Movements 2 Laboratory Tests Test 05/14/20 17:09 05/14/20 21:08 05/15/20 06:01 05/15/20 06:06 POC Whole Blood Glucose Pending 237 MG/DL (74-106) H 333 MG/DL (74-106) H White Blood Count 3.1 K/UL (4.8-10.8) L Red Blood Count 4.06 M/UL (4.70-6.10) L Hemoglobin 10.6 G/DL (14.2-18.0) L Hematocrit 34.7 % (42.0-52.0) L Mean Corpuscular Volume 85 FL (80-99) Mean Corpuscular Hemoglobin 26.0 PG (27.0-31.0) L Mean Corpuscular Hemoglobin Concent 30.4 G/DL (32.0-36.0) L Red Cell Distribution Width 15.7 % (11.6-14.8) H Platelet Count 254 K/UL (150-450) Mean Platelet Volume 7.9 FL (6.5-10.1) Neutrophils (%) (Auto) % (45.0-75.0) Lymphocytes (%) (Auto) % (20.0-45.0) Monocytes (%) (Auto) % (1.0-10.0) Eosinophils (%) (Auto) % (0.0-3.0) Basophils (%) (Auto) % (0.0-2.0) Neutrophils % (Manual) Pending Lymphocytes % (Manual) Pending Platelet Estimate Pending Platelet Morphology Pending Sodium Level Pending Potassium Level Pending Chloride Level Pending Carbon Dioxide Level Pending Anion Gap 7 mmol/L (5-15) Blood Urea Nitrogen Pending Creatinine Pending Estimat Glomerular Filtration Rate Pending Glucose Level Pending Uric Acid 5.2 MG/DL (2.6-7.2) Calcium Level Pending Phosphorus Level 3.4 MG/DL (2.5-4.9) Magnesium Level 1.5 MG/DL (1.8-2.4) L Iron Level 28 ug/dL (50-175) L Total Iron Binding Capacity 375 ug/dL (250-450) Percent Iron Saturation 7 % (15-50) L Unsaturated Iron Binding 347 ug/dL (112-346) H Ferritin 13 NG/ML (8-388) Total Bilirubin 0.3 MG/DL (0.2-1.0) Direct Bilirubin < 0.1 MG/DL (0.0-0.3) Aspartate Amino Transf (AST/SGOT) 13 U/L (15-37) L Alanine Aminotransferase (ALT/SGPT) 17 U/L (12-78) Alkaline Phosphatase 84 U/L (46-116) Troponin I 0.002 ng/mL (0.000-0.056) Total Protein 7.0 G/DL (6.4-8.2) Albumin 3.3 G/DL (3.4-5.0) L Globulin Pending Vitamin B12 Level 208 PG/ML (193-986) Folate 6.3 NG/ML (8.6-58.9) L Height (Feet): 6 Height (Inches): 2.00 Weight (Pounds): 234 Medications Current Medications Medications (Trade) Dose Ordered Sig/Buzz Route PRN Reason Start Time Stop Time Status Last Admin Dose Admin Carvedilol (Coreg) 25 mg EVERY 12 HOURS ORAL 05/14/20 21:00 06/13/20 20:59 05/15/20 08:41 Clonidine HCl (Catapres tab) 0.2 mg BID ORAL 05/14/20 13:00 08/12/20 12:59 05/15/20 08:41 Dextrose (Dextrose 50%) 25 ml Q30M PRN IV Hypoglycemia 05/14/20 12:00 08/12/20 11:59 Dextrose (Dextrose 50%) 50 ml Q30M PRN IV Hypoglycemia 05/14/20 12:00 08/12/20 11:59 Gabapentin (Neurontin) 300 mg THREE TIMES A DAY ORAL 05/14/20 22:00 06/13/20 21:59 Insulin Aspart (NovoLOG) BEFORE MEALS AND HS SUBQ 05/14/20 16:30 08/12/20 16:29 05/15/20 06:09 Lorazepam (Ativan) 1 mg Q6H PRN ORAL For Anxiety 05/14/20 22:30 05/21/20 22:29 05/15/20 05:57 Methadone HCl (Methadone HCl) 10 mg Q6H ORAL 05/14/20 23:00 05/21/20 22:59 Nifedipine (Procardia XL) 60 mg TWICE A DAY ORAL 05/14/20 18:00 06/13/20 17:59 05/14/20 17:26 Oxycodone HCl (Roxicodone) 15 mg Q6H PRN ORAL Severe Breakthru Pain (>7) 05/14/20 22:00 05/21/20 11:44 05/15/20 05:57 Assessment/Plan Assessment/Plan: (1) Lumbar DDD (2) Lumbar Spondylosis (3) Lumbar Herniated disc (4) Lumbar Radiculopathy seen dictated Yaw Avila May 15, 2020 10:09
[2020-05-15] MEDS: HYDROmorphone 2mg tab ORAL PRN ×3 (10:43→20:29)
--- NOTE | 2020-05-15 11:18 | NUR ---
Patient complaining about his Pain Medication orders; DIANNA Faulkner, visited patient in consult, spoke with patient and adjusted his pain medications. Patient wants an explanation why his medication dose was decreased, Yaw Avila paged and requested for him to talk to patient and explain his plan of action; he said he will call patient back.
--- NOTE | 2020-05-15 11:21 | NUR ---
NURSE NOTES: Dr Boone is aware mg 1.5, order noted and carried out. will continue to monitor.
[2020-05-15] MEDS: oxyCODONE 5mg IR tab ORAL PRN ×2 (12:55→18:58)
[2020-05-15] MEDS: Magnesium Oxide 400mg tab ORAL SCH ×2 (12:56→17:04)
--- NOTE | 2020-05-15 14:57 | General Progress Note ---
Assessment/Plan Status: unchanged Assessment/Plan: Assessment - diarrhea - mild anemia with Iron deficiency - HTN - IDDM Recommendations - await stool Cx - stool OB - needs eventual EGD/Colon Subjective Allergies: Coded Allergies: HYDRALAZINE (Verified Allergy, Severe, angio edema, 01/11/18) angio edema ETODOLAC (Unverified Allergy, Mild, 01/11/18) AMLODIPINE (Unverified Allergy, Unknown, 01/11/18) tolerates nifedipine 04/18/16 ASPIRIN (Verified Allergy, Unknown, 01/11/18) ATENOLOL (Verified Allergy, Unknown, 01/11/18) tolerates metoprolol 04/18/16 DIPHENHYDRAMINE (Verified Allergy, Unknown, 01/11/18) HYDROCHLOROTHIAZIDE (Verified Allergy, Unknown, 01/11/18) LABETALOL (Verified Allergy, Unknown, 01/11/18) tolerates metoprolol 04/18/16 LISINOPRIL (Unverified Allergy, Unknown, 01/10/16) LORATADINE (Verified Allergy, Unknown, 01/11/18) MILK (Verified Allergy, Unknown, 01/11/18) MORPHINE (Verified Allergy, Unknown, 01/11/18) NICARDIPINE (Verified Allergy, Unknown, 01/11/18) tolerates nifedipine 04/18/16 NITROGLYCERIN (Unverified Allergy, Unknown, 01/11/18) PENICILLINS (Unverified Allergy, Unknown, 01/11/18) tolerates cephalexin 04/18/16 [place] Nut (Verified Allergy, Unknown, 01/11/18) SHELLFISH DERIVED (Verified Allergy, Unknown, 01/11/18) Subjective above noted still with abd pain and diarrhea no stool sample sent yet iron panel noted - Iron deficient Objective Last 24 Hour Vital Signs Date Time Temp Pulse Resp B/P (MAP) Pulse Ox O2 Delivery O2 Flow Rate FiO2 05/15/20 12:30 80 19 130/85 97 05/15/20 12:29 85 05/15/20 12:00 98.1 80 20 130/86 (101) 95 05/15/20 12:00 80 19 130/85 97 05/15/20 11:56 80 130/85 05/15/20 10:00 150/91 (110) 05/15/20 09:00 Room Air 05/15/20 08:41 93 180/107 8/30/20 08:41 180/107 05/15/20 08:00 97.0 93 20 180/107 (131) 98 05/15/20 07:48 89 05/15/20 05:57 85 20 155/99 97 05/15/20 04:17 96.8 85 20 155/99 (117) 97 05/15/20 04:00 83 05/15/20 00:00 87 05/15/20 00:00 97.7 90 20 180/110 (133) 97 05/14/20 23:22 75 20 175/110 100 05/14/20 21:38 75 175/110 05/14/20 21:00 Room Air 05/14/20 20:00 72 05/14/20 20:00 97.7 79 20 182/116 (138) 95 05/14/20 17:27 175/110 05/14/20 17:26 75 175/110 05/14/20 16:00 97.7 75 20 175/110 (131) 100 05/14/20 16:00 71 Intake and Output 05/14/20 05/15/20 19:00 07:00 Intake Total 940 ml 280 ml Balance 940 ml 280 ml Intake Oral 940 ml 280 ml # Voids 2 2 # Bowel Movements 2 Laboratory Tests 05/14/20 17:09: POC Whole Blood Glucose [Pending] 05/14/20 21:08: POC Whole Blood Glucose 237H 05/15/20 06:01: POC Whole Blood Glucose 333H 05/15/20 06:06: White Blood Count 3.1L, Red Blood Count 4.06L, Hemoglobin 10.6L, Hematocrit 34.7L, Mean Corpuscular Volume 85, Mean Corpuscular Hemoglobin 26.0L, Mean Corpuscular Hemoglobin Concent 30.4L, Red Cell Distribution Width 15.7H, Platelet Count 254, Mean Platelet Volume 7.9, Neutrophils (%) (Auto) , Lymphocytes (%) (Auto) , Monocytes (%) (Auto) , Eosinophils (%) (Auto) , Basophils (%) (Auto) , Differential Total Cells Counted 100, Neutrophils % ( Manual) 47, Lymphocytes % (Manual) 39, Monocytes % (Manual) 8, Eosinophils % ( Manual) 5H, Basophils % (Manual) 1, Band Neutrophils 0, Platelet Estimate Adequate, Platelet Morphology Normal, Hypochromasia 1+, Anisocytosis 1+, Sodium Level [Pending], Potassium Level [Pending], Chloride Level [Pending], Carbon Dioxide Level [Pending], Anion Gap 7, Blood Urea Nitrogen [Pending], Creatinine [Pending], Estimat Glomerular Filtration Rate [Pending], Glucose Level [Pending] , Uric Acid 5.2, Calcium Level [Pending], Phosphorus Level 3.4, Magnesium Level 1.5L, Iron Level 28L, Total Iron Binding Capacity 375, Percent Iron Saturation 7L, Unsaturated Iron Binding 347H, Ferritin 13, Total Bilirubin 0.3, Direct Bilirubin < 0.1, Aspartate Amino Transf (AST/SGOT) 13L, Alanine Aminotransferase (ALT/SGPT) 17, Alkaline Phosphatase 84, Troponin I 0.002, Total Protein 7.0, Albumin 3.3L, Globulin [Pending], Vitamin B12 Level 208, Folate 6.3L 05/15/20 11:51: POC Whole Blood Glucose 280H Height (Feet): 6 Height (Inches): 2.00 Weight (Pounds): 234 Objective WDWN NCAT supple CTA RR abd soft no edema Fatoumata Ross MD May 15, 2020 14:57
--- NOTE | 2020-05-15 15:20 | Cardiac Electrophysiology PN ---
Assessment/Plan Assessment/Plan 1. Accelerated hypertension. On Coreg 25 mg b.i.d. Procardia 60 mg b.i.d. and clonidine 0.2 mg b.i.d.and p.r.n. clonidine to his medical regimen. Offered to change Procardia and Clonidine to Lasix 40 po bid and Diovan 80 bid but refusing. 2. CHF EF 35%. Says EF was 15% at [facility] 3 months ago and was offered ICD Refusing IV access. On Coreg. allergic to Lisinopril and Hydralazine. Added Lasix 40 po bid and Diovan 80 bid but refusing Will get report from [facility] at [place]. 3. Chest pain. Troponins are negative. EKG shows LVH and repolarization abnormality Echo EF 35% 4. History of pulmonary embolus. The patient underwent a CT of the chest, abdomen, and pelvis that showed no acute findings, and a CT of abdomen and pelvis was also normal. 5. History of noncompliance. 6. History of depression and anxiety. Subjective Subjective Complains of CP. ECho EF 35%-40% preliminary report Objective Last 24 Hour Vital Signs Date Time Temp Pulse Resp B/P (MAP) Pulse Ox O2 Delivery O2 Flow Rate FiO2 05/15/20 12:30 80 19 130/85 97 05/15/20 12:29 85 05/15/20 12:00 98.1 80 20 130/86 (101) 95 05/15/20 12:00 80 19 130/85 97 05/15/20 11:56 80 130/85 05/15/20 10:00 150/91 (110) 05/15/20 09:00 Room Air 05/15/20 08:41 93 180/107 05/15/20 08:41 180/107 05/15/20 08:00 97.0 93 20 180/107 (131) 98 05/15/20 07:48 89 05/15/20 05:57 85 20 155/99 97 05/15/20 04:17 96.8 85 20 155/99 (117) 97 05/15/20 04:00 83 05/15/20 00:00 87 05/15/20 00:00 97.7 90 20 180/110 (133) 97 05/14/20 23:22 75 20 175/110 100 05/14/20 21:38 75 175/110 05/14/20 21:00 Room Air 05/14/20 20:00 72 05/14/20 20:00 97.7 79 20 182/116 (138) 95 05/14/20 17:27 175/110 05/14/20 17:26 75 175/110 05/14/20 16:00 97.7 75 20 175/110 (131) 100 05/14/20 16:00 71 Intake and Output 05/14/20 05/15/20 19:00 07:00 Intake Total 940 ml 280 ml Balance 940 ml 280 ml Intake Oral 940 ml 280 ml # Voids 2 2 # Bowel Movements 2 Laboratory Tests Test 05/14/20 17:09 05/14/20 21:08 05/15/20 06:01 05/15/20 06:06 POC Whole Blood Glucose Pending 237 MG/DL (74-106) H 333 MG/DL (74-106) H White Blood Count 3.1 K/UL (4.8-10.8) L Red Blood Count 4.06 M/UL (4.70-6.10) L Hemoglobin 10.6 G/DL (14.2-18.0) L Hematocrit 34.7 % (42.0-52.0) L Mean Corpuscular Volume 85 FL (80-99) Mean Corpuscular Hemoglobin 26.0 PG (27.0-31.0) L Mean Corpuscular Hemoglobin Concent 30.4 G/DL (32.0-36.0) L Red Cell Distribution Width 15.7 % (11.6-14.8) H Platelet Count 254 K/UL (150-450) Mean Platelet Volume 7.9 FL (6.5-10.1) Neutrophils (%) (Auto) % (45.0-75.0) Lymphocytes (%) (Auto) % (20.0-45.0) Monocytes (%) (Auto) % (1.0-10.0) Eosinophils (%) (Auto) % (0.0-3.0) Basophils (%) (Auto) % (0.0-2.0) Differential Total Cells Counted 100 Neutrophils % (Manual) 47 % (45-75) Lymphocytes % (Manual) 39 % (20-45) Monocytes % (Manual) 8 % (1-10) Eosinophils % (Manual) 5 % (0-3) H Basophils % (Manual) 1 % (0-2) Band Neutrophils 0 % (0-8) Platelet Estimate Adequate Platelet Morphology Normal Hypochromasia 1+ Anisocytosis 1+ Sodium Level Pending Potassium Level Pending Chloride Level Pending Carbon Dioxide Level Pending Anion Gap 7 mmol/L (5-15) Blood Urea Nitrogen Pending Creatinine Pending Estimat Glomerular Filtration Rate Pending Glucose Level Pending Uric Acid 5.2 MG/DL (2.6-7.2) Calcium Level Pending Phosphorus Level 3.4 MG/DL (2.5-4.9) Magnesium Level 1.5 MG/DL (1.8-2.4) L Iron Level 28 ug/dL (50-175) L Total Iron Binding Capacity 375 ug/dL (250-450) Percent Iron Saturation 7 % (15-50) L Unsaturated Iron Binding 347 ug/dL (112-346) H Ferritin 13 NG/ML (8-388) Total Bilirubin 0.3 MG/DL (0.2-1.0) Direct Bilirubin < 0.1 MG/DL (0.0-0.3) Aspartate Amino Transf (AST/SGOT) 13 U/L (15-37) L Alanine Aminotransferase (ALT/SGPT) 17 U/L (12-78) Alkaline Phosphatase 84 U/L (46-116) Troponin I 0.002 ng/mL (0.000-0.056) Total Protein 7.0 G/DL (6.4-8.2) Albumin 3.3 G/DL (3.4-5.0) L Globulin Pending Vitamin B12 Level 208 PG/ML (193-986) Folate 6.3 NG/ML (8.6-58.9) L Test 05/15/20 11:51 POC Whole Blood Glucose 280 MG/DL (74-106) H Microbiology Date/Time Source Procedure Growth Status 05/14/20 07:35 Nasopharynx SARS-CoV-2 RdRp Gene Assay - Final Complete Objective HEAD AND NECK: No JVD. LUNGS: Clear. CARDIOVASCULAR: Shows regular S1 and S2 with no gallop or murmur. ABDOMEN: Soft. EXTREMITIES: No pitting edema. Chirag Barnes MD May 15, 2020 15:20
--- NOTE | 2020-05-15 15:39 | NUR ---
NURSE NOTES: Pt asking to have nifedipine 12am and 12pm, Dr Rodriguez is aware and ordered to do it, noted and carried out. will continue to monitor.
--- NOTE | 2020-05-15 16:44 | Consultation ---
DATE OF CONSULTATION: 05/15/2020 PAIN MANAGEMENT CONSULTATION CONSULTING PHYSICIAN: Ronald Ortiz MD. REFERRING PHYSICIAN: John Fernandez DO. PHYSICIAN COMPUTER SYSTEMS HARDWARE ANALYST: DIANNA Wiggins. CHIEF COMPLAINT: Back pain. HISTORY OF PRESENT ILLNESS: This is a 45-year-old male, who is being seen on the telemetry floor of [facility] for comprehensive pain management consultation. Patient is a known patient from previous hospital admission, now admitted under the care of Dr. Holder with complaints of chest pain being ruled out for ACS. He has complaints of chronic back pain rating at 10/10, described the pain as a sharp, stabbing pain, radiating down bilateral extremities, increased with movement and is reduced with medications. He was started on methadone 10 mg tablet every 6 hours around the clock, hold for oversedation as well as oxycodone 15 mg tablet every 6 hours as needed for severe pain. However, patient reports that methadone and gabapentin, which were started caused him to have increased abdominal pain and does not want to take those medications. In the past, he had been comfortable on oxycodone 10 mg tablet every 6 hours and Dilaudid 2 mg tablet every 4 hours as needed and has no other complaints at this time. We were consulted so patient would have adequate pain control while here in the hospital. REVIEW OF SYSTEMS: Denies rash, fever, chills, sweating, dizziness, drowsiness, blurred vision, sore throat, or change in weight. No shortness of breath or chest pain. No nausea, vomiting, diarrhea, or blood in the stool or urine. No dysuria. PHYSICAL EXAMINATION: GENERAL: Alert, awake, oriented. VITAL SIGNS: Blood pressure 180/107, oxygen saturation is 98%, respiratory rate 20, temperature is 97 degrees Fahrenheit, heart rate is 93. LUNGS: Decreased breath sounds bilaterally. HEART: S1 and S2 regular. ABDOMEN: Soft, nontender. BACK: Range of motion is decreased in flexion and extension. EXTREMITIES: Upper and lower extremity range of motion is decreased due to patient's condition. No cyanosis. No clubbing. Sensory is reduced. Reflexes are not obtainable. No adenopathy. ASSESSMENT AND PLAN: This is a 45-year-old male with lumbar degenerative disk disease, lumbar stenosis, and herniated disk. The patient will be discontinued off methadone, Neurontin, and oxycodone. We will place patient on Dilaudid 2 mg tablet as needed for severe pain and oxycodone 10 mg tablet every 6 hours as needed for moderate breakthrough pain. The patient was discussed with Dr. Ortiz and Dr. Ortiz concurred. We will follow up with the patient. Thank you very much for the courtesy of this consultation. Ronald Ortiz M.D. DIANNA Wiggins DR: JOHANNY JOB#: [id number] CC:
--- NOTE | 2020-05-15 17:38 | NUR ---
NURSE NOTES: Dr Rodriguez ordered to contact [facility] and ask them to release health information regarding discharge summary and 2DEcho result, pt read very carefully and signed consent form to release of protected health information regarding D/C summary and 2decho result. RN called [facility] to get fax number but KATIA Fariba stated she doesn't have medical record fax number and gave RN ph:[phone] to get fax number on Saturday, KEREN Perez is aware. will endorse to next shift to F/U Saturday.
--- NOTE | 2020-05-15 19:34 | NUR ---
NURSE HAND-OFF REPORT: Important Events on Shift: Patient Status: Diet: Pending Orders: Pending Results/Labs: Pending MD notification: Latest Vital Signs: Temperature 97.9 , Pulse 84 , B/P 147 /89 , Respiratory Rate 20 , O2 SAT 98 , Room Air, O2 Flow Rate . Vital Sign Comment: EKG Rhythm: Sinus Rhythm Rhythm change?: N MD Notified?: - MD Response: Latest Mosley Fall Score: 20 Fall Risk: Low Risk Safety Measures: Call light Within Reach, Bed Alarm Zone 1, Side Rails Side Rails x2, Bed position Low and Locked. Fall Precautions: Yellow Socks Yellow Gown Door Sign Patient Fall Education Report given to . Pt is awake and stable, no stress noted. Endorsed plan of care, endorsed to F/U RELEASE HEALTH INFORMATION FOR D/C SUMMARU AND 2DECHO tomorrow morning. and endorsed to F/U STOOL CULTURE.
--- NOTE | 2020-05-15 19:35 | NUR ---
NURSE NOTES: Received pt from RN Antwon, pt is awake and alert, pt is on RA, no SOB or acute respiratory distress noted. pt has no intact iv access and refuses to have one, is aware. Dr Holder visited pt this morning. bed is locked and is in the lowest position, call light within easy reach. will continue to monitor.
[2020-05-15] MEDS ORDERED: Levemir Flexpen SUBQ SCH (21:00)
[2020-05-16] MEDS: LORazepam 0.5mg tab ORAL PRN ×3 (00:03→12:57)
[2020-05-16] MEDS: HYDROmorphone 2mg tab ORAL PRN ×4 (00:03→13:05)
[2020-05-16 00:19] VITALS: BP 165/102
--- NOTE | 2020-05-16 00:20 | NUR ---
NURSE NOTES: Pt refused Procardia and I wasted it in the pyxis. I educated pt regarding his very elevated BP currently at 165/102, but he continued to refuse and stated "I only take that at noon, once a day, that's it. I already told them that earlier."
[2020-05-16] MEDS: oxyCODONE 5mg IR tab ORAL PRN ×2 (01:28→08:08)
[2020-05-16 04:24] VITALS: BP 158/98
[2020-05-16] MEDS: NovoLOG Insulin Flexpen SUBQ SCH ×2 (06:37→12:24)
[2020-05-16 06:47] LABS: HEMOGLOBIN 10.4 G/DL (14.2-18.0); MEAN CORPUSCULAR VOLUME 86 FL (80-99); PLATELET COUNT 259 K/UL (150-450); RED BLOOD COUNT 3.96 M/UL (4.70-6.10); RED CELL DISTRIBUTION WIDTH 15.5 % (11.6-14.8); WHITE BLOOD COUNT 2.7 K/UL (4.8-10.8)
[2020-05-16 07:14] LABS: ANION GAP 8 mmol/L (5-15); BLOOD UREA NITROGEN 19 mg/dL (7-18); CALCIUM 9.2 MG/DL (8.5-10.1); CARBON DIOXIDE 29 MMOL/L (21-32); CHLORIDE 100 MMOL/L (98-107); CREATININE 1.1 MG/DL (0.55-1.30); POTASSIUM 3.5 MMOL/L (3.5-5.1); SODIUM 137 MMOL/L (136-145)
--- NOTE | 2020-05-16 07:23 | NUR ---
NURSE HAND-OFF REPORT: Important Events on Shift: Pain Management Patient Status: Stable Diet: Cardiac Pending Orders: labs, cbc, bmp Pending Results/Labs:OB stool, c diff stool, labs this am Pending MD notification:NA Latest Vital Signs: Temperature 97.7 , Pulse 75 , B/P 155/97 Respiratory Rate 20 , O2 SAT 100 , Room Air, Vital Sign Comment: hypertensive, refused BP med at midnight and said he only takes that once a day not twice EKG Rhythm: Sinus Rhythm Rhythm change?: N Latest [place] Fall Score: 20 Fall Risk: Low Risk Safety Measures: Call light Within Reach, Bed Alarm Zone 1, Side Rails Side Rails x2, Bed position Low and Locked. Fall Precautions: Patient Fall Education Report given to Anshu ARELLANO
--- NOTE | 2020-05-16 07:26 | NUR ---
NURSE NOTES: Follow up with Dr Barnes's request regarding getting 2d echo results and DC summary, pt claims that EF at [facility] in [place] was 15%, EF on 2decho here showed 35-40%, pt said at [facility] was offered an ICD
[2020-05-16 08:00] VITALS: BP 173/115
[2020-05-16] MEDS: Magnesium Oxide 400mg tab ORAL SCH ×2 (08:06→14:08)
[2020-05-16] MEDS: Carvedilol 25mg Tab ORAL SCH (08:07)
--- NOTE | 2020-05-16 08:30 | General Progress Note ---
Assessment/Plan Assessment/Plan: (1) Lumbar DDD (2) Lumbar Spondylosis (3) Lumbar Herniated disc (4) Lumbar Radiculopathy Patient to be continued on Dilaudid and Oxycodone as needed. D/w Dr. Ortiz and he concurred. Subjective Date patient seen: May 16, 2020 Time patient seen: 08:20 - am Allergies: Coded Allergies: HYDRALAZINE (Verified Allergy, Severe, angio edema, 01/11/18) angio edema ETODOLAC (Unverified Allergy, Mild, 01/11/18) AMLODIPINE (Unverified Allergy, Unknown, 01/11/18) tolerates nifedipine 04/18/16 ASPIRIN (Verified Allergy, Unknown, 01/11/18) ATENOLOL (Verified Allergy, Unknown, 01/11/18) tolerates metoprolol 04/18/16 DIPHENHYDRAMINE (Verified Allergy, Unknown, 01/11/18) HYDROCHLOROTHIAZIDE (Verified Allergy, Unknown, 01/11/18) LABETALOL (Verified Allergy, Unknown, 01/11/18) tolerates metoprolol 04/18/16 LISINOPRIL (Unverified Allergy, Unknown, 01/10/16) LORATADINE (Verified Allergy, Unknown, 01/11/18) MILK (Verified Allergy, Unknown, 01/11/18) MORPHINE (Verified Allergy, Unknown, 01/11/18) NICARDIPINE (Verified Allergy, Unknown, 01/11/18) tolerates nifedipine 04/18/16 NITROGLYCERIN (Unverified Allergy, Unknown, 01/11/18) PENICILLINS (Unverified Allergy, Unknown, 01/11/18) tolerates cephalexin 04/18/16 [place] Nut (Verified Allergy, Unknown, 01/11/18) SHELLFISH DERIVED (Verified Allergy, Unknown, 01/11/18) Subjective REVIEW OF SYSTEMS: Denies rash, fever, chills, sweating, dizziness, drowsiness, blurred vision, sore throat, or change in weight. No shortness of breath or chest pain. No nausea, vomiting, diarrhea, or blood in the stool or urine. No dysuria. SUBJECTIVE: In bed no signs of pain or distress. Tolerated on the Oxycodone and Dilaudid as needed. No new complaints at this time. Objective Last 24 Hour Vital Signs Date Time Temp Pulse Resp B/P (MAP) Pulse Ox O2 Delivery O2 Flow Rate FiO2 05/16/20 08:07 84 173/115 05/16/20 08:00 99.5 97 18 173/115 (134) 99 05/16/20 07:06 84 25 158/98 96 05/16/20 06:36 84 25 158/98 96 05/16/20 05:54 97.7 05/16/20 04:24 97.7 84 25 158/98 (118) 96 05/16/20 04:00 86 05/16/20 00:19 97.7 89 19 165/102 (123) 96 05/16/20 00:03 92 18 148/90 96 05/16/20 00:00 92 148/90 05/16/20 00:00 86 05/15/20 21:00 Room Air 05/15/20 20:33 94 150/101 05/15/20 20:00 99 05/15/20 20:00 97.9 94 19 142/94 (110) 95 05/15/20 18:07 84 20 147/89 98 05/15/20 17:04 147/89 05/15/20 16:00 97.9 84 20 147/89 (108) 98 05/15/20 15:33 87 05/15/20 12:29 85 05/15/20 12:00 98.1 80 20 130/86 (101) 95 05/15/20 12:00 80 19 130/85 97 05/15/20 11:56 80 130/85 05/15/20 10:00 150/91 (110) 05/15/20 09:00 Room Air 05/15/20 08:41 93 180/107 05/15/20 08:41 180/107 Intake and Output 05/15/20 05/16/20 19:00 07:00 Intake Total 400 ml 4000 ml Balance 400 ml 4000 ml Intake Oral 400 ml 4000 ml # Voids 4 5 Laboratory Tests 05/15/20 11:51: POC Whole Blood Glucose 280H 05/15/20 15:58: POC Whole Blood Glucose 272H 05/16/20 05:15: White Blood Count 2.7L, Red Blood Count 3.96L, Hemoglobin 10.4L, Hematocrit 34.0L, Mean Corpuscular Volume 86, Mean Corpuscular Hemoglobin 26.2L, Mean Corpuscular Hemoglobin Concent 30.5L, Red Cell Distribution Width 15.5H, Platelet Count 259, Mean Platelet Volume 8.4, Neutrophils (%) (Auto) , Lymphocytes (%) (Auto) , Monocytes (%) (Auto) , Eosinophils (%) (Auto) , Basophils (%) (Auto) , Neutrophils % (Manual) [Pending], Lymphocytes % (Manual) [Pending], Platelet Estimate [Pending], Platelet Morphology [Pending], Sodium Level 137, Potassium Level 3.5, Chloride Level 100, Carbon Dioxide Level 29, Anion Gap 8, Blood Urea Nitrogen 19H, Creatinine 1.1, Estimat Glomerular Filtration Rate > 60, Glucose Level 374H, Calcium Level 9.2 05/16/20 05:26: POC Whole Blood Glucose 350H Height (Feet): 6 Height (Inches): 2.00 Weight (Pounds): 235 Objective GENERAL: Alert, awake, oriented. LUNGS: Decreased breath sounds bilaterally. HEART: S1 and S2 regular. ABDOMEN: Soft, nontender. EXTREMITIES: No cyanosis. No clubbing. NEURO: No changes. Yaw Avila May 16, 2020 08:30
[2020-05-16] MEDS: cloNIDine 0.2mg Tab ORAL SCH ×2 (08:37→14:09)
--- NOTE | 2020-05-16 09:12 | General Progress Note ---
Assessment/Plan Problem List: (1) PTSD (post-traumatic stress disorder) ICD Codes: F43.10 - Post-traumatic stress disorder, unspecified SNOMED: 67584967 (2) Chronic pain disorder ICD Codes: G89.4 - Chronic pain syndrome SNOMED: 774202267 (3) Hypertensive urgency ICD Codes: I16.0 - Hypertensive urgency SNOMED: 820537465 (4) Abdominal pain ICD Codes: R10.9 - Unspecified abdominal pain SNOMED: 02116380 Qualifiers: Qualified Codes: R10.12 - Left upper quadrant pain (5) Leukopenia ICD Codes: D72.819 - Decreased white blood cell count, unspecified SNOMED: 63377871, 026345852 Status: unchanged Assessment/Plan: pain bp control pt diet heme sx f/u cbc bmp am Subjective Constitutional: Reports: weakness Allergies: Coded Allergies: HYDRALAZINE (Verified Allergy, Severe, angio edema, 01/11/18) angio edema ETODOLAC (Unverified Allergy, Mild, 01/11/18) AMLODIPINE (Unverified Allergy, Unknown, 01/11/18) tolerates nifedipine 04/18/16 ASPIRIN (Verified Allergy, Unknown, 01/11/18) ATENOLOL (Verified Allergy, Unknown, 01/11/18) tolerates metoprolol 04/18/16 DIPHENHYDRAMINE (Verified Allergy, Unknown, 01/11/18) HYDROCHLOROTHIAZIDE (Verified Allergy, Unknown, 01/11/18) LABETALOL (Verified Allergy, Unknown, 01/11/18) tolerates metoprolol 04/18/16 LISINOPRIL (Unverified Allergy, Unknown, 01/10/16) LORATADINE (Verified Allergy, Unknown, 01/11/18) MILK (Verified Allergy, Unknown, 01/11/18) MORPHINE (Verified Allergy, Unknown, 01/11/18) NICARDIPINE (Verified Allergy, Unknown, 01/11/18) tolerates nifedipine 04/18/16 NITROGLYCERIN (Unverified Allergy, Unknown, 01/11/18) PENICILLINS (Unverified Allergy, Unknown, 01/11/18) tolerates cephalexin 04/18/16 [place] Nut (Verified Allergy, Unknown, 01/11/18) SHELLFISH DERIVED (Verified Allergy, Unknown, 01/11/18) All Systems: reviewed and negative except above Subjective sleepy calm Objective Last 24 Hour Vital Signs Date Time Temp Pulse Resp B/P (MAP) Pulse Ox O2 Delivery O2 Flow Rate FiO2 05/16/20 08:37 173/115 05/16/20 08:07 84 173/115 05/16/20 08:00 99.5 97 18 173/115 (134) 99 05/16/20 07:06 84 25 158/98 96 05/16/20 06:36 84 25 158/98 96 05/16/20 05:54 97.7 05/16/20 04:24 97.7 84 25 158/98 (118) 96 05/16/20 04:00 86 05/16/20 00:19 97.7 89 19 165/102 (123) 96 05/16/20 00:03 92 18 148/90 96 05/16/20 00:00 92 148/90 05/16/20 00:00 86 05/15/20 21:00 Room Air 05/15/20 20:33 94 150/101 05/15/20 20:00 99 05/15/20 20:00 97.9 94 19 142/94 (110) 95 05/15/20 18:07 84 20 147/89 98 05/15/20 17:04 147/89 05/15/20 16:00 97.9 84 20 147/89 (108) 98 05/15/20 15:33 87 05/15/20 12:29 85 05/15/20 12:00 98.1 80 20 130/86 (101) 95 05/15/20 12:00 80 19 130/85 97 05/15/20 11:56 80 130/85 05/15/20 10:00 150/91 (110) Intake and Output 05/15/20 05/16/20 19:00 07:00 Intake Total 400 ml 4000 ml Balance 400 ml 4000 ml Intake Oral 400 ml 4000 ml # Voids 4 5 Laboratory Tests 05/15/20 11:51: POC Whole Blood Glucose 280H 05/15/20 15:58: POC Whole Blood Glucose 272H 05/16/20 05:15: White Blood Count 2.7L, Red Blood Count 3.96L, Hemoglobin 10.4L, Hematocrit 34.0L, Mean Corpuscular Volume 86, Mean Corpuscular Hemoglobin 26.2L, Mean Corpuscular Hemoglobin Concent 30.5L, Red Cell Distribution Width 15.5H, Platelet Count 259, Mean Platelet Volume 8.4, Neutrophils (%) (Auto) , Lymphocytes (%) (Auto) , Monocytes (%) (Auto) , Eosinophils (%) (Auto) , Basophils (%) (Auto) , Neutrophils % (Manual) [Pending], Lymphocytes % (Manual) [Pending], Platelet Estimate [Pending], Platelet Morphology [Pending], Sodium Level 137, Potassium Level 3.5, Chloride Level 100, Carbon Dioxide Level 29, Anion Gap 8, Blood Urea Nitrogen 19H, Creatinine 1.1, Estimat Glomerular Filtration Rate > 60, Glucose Level 374H, Calcium Level 9.2 05/16/20 05:26: POC Whole Blood Glucose 350H Height (Feet): 6 Height (Inches): 2.00 Weight (Pounds): 235 General Appearance: alert EENT: normal ENT inspection Neck: normal alignment Cardiovascular: normal peripheral pulses, normal rate, regular rhythm Respiratory/Chest: chest wall non-tender, lungs clear, normal breath sounds Abdomen: normal bowel sounds, non tender, soft Extremities: normal inspection Edema: no edema noted Arm (L), no edema noted Arm (R), no edema noted Leg (L), no edema noted Leg (R), no edema noted Pedal (L), no edema noted Pedal (R), no edema noted Generalized Neurologic: motor weakness Skin: normal pigmentation, warm/dry John Holder DO May 16, 2020 09:12
--- NOTE | 2020-05-16 10:20 | NUR ---
NURSE NOTES: Left message with Kerry at message service for Dr. John Holder reporting white blood cells=2.7 and patient desires to be discharged. Will place neutropenic precautions.
--- NOTE | 2020-05-16 11:18 | NUR ---
NURSE NOTES: Patient pulled off monitor, got dressed, went to medical records. I spoke with Dayday at message service of Dr. John Holder with message that patient wants to be discharged. Patient also has provided a list of medications that he would like called into his pharmacy, ([facility]).
--- NOTE | 2020-05-16 11:20 | NUR ---
NURSE NOTES: Patient has removed the business professor/tele box, 5 lead, and blood padffcix=808/111.
--- NOTE | 2020-05-16 11:57 | General Progress Note ---
Assessment/Plan Status: unchanged Assessment/Plan: iron def anemia diarrhea patient wants to go home he was given my card to call and to make an appointment patient will need EGD and colonoscopy Subjective ROS Limited/Unobtainable: Yes Allergies: Coded Allergies: HYDRALAZINE (Verified Allergy, Severe, angio edema, 01/11/18) angio edema ETODOLAC (Unverified Allergy, Mild, 01/11/18) AMLODIPINE (Unverified Allergy, Unknown, 01/11/18) tolerates nifedipine 04/18/16 ASPIRIN (Verified Allergy, Unknown, 01/11/18) ATENOLOL (Verified Allergy, Unknown, 01/11/18) tolerates metoprolol 04/18/16 DIPHENHYDRAMINE (Verified Allergy, Unknown, 01/11/18) HYDROCHLOROTHIAZIDE (Verified Allergy, Unknown, 01/11/18) LABETALOL (Verified Allergy, Unknown, 01/11/18) tolerates metoprolol 04/18/16 LISINOPRIL (Unverified Allergy, Unknown, 01/10/16) LORATADINE (Verified Allergy, Unknown, 01/11/18) MILK (Verified Allergy, Unknown, 01/11/18) MORPHINE (Verified Allergy, Unknown, 01/11/18) NICARDIPINE (Verified Allergy, Unknown, 01/11/18) tolerates nifedipine 04/18/16 NITROGLYCERIN (Unverified Allergy, Unknown, 01/11/18) PENICILLINS (Unverified Allergy, Unknown, 01/11/18) tolerates cephalexin 04/18/16 [place] Nut (Verified Allergy, Unknown, 01/11/18) SHELLFISH DERIVED (Verified Allergy, Unknown, 01/11/18) Objective Last 24 Hour Vital Signs Date Time Temp Pulse Resp B/P (MAP) Pulse Ox O2 Delivery O2 Flow Rate FiO2 05/16/20 10:02 99.5 05/16/20 08:37 173/115 05/16/20 08:07 84 173/115 05/16/20 08:00 108 05/16/20 08:00 99.5 97 18 173/115 (134) 99 05/16/20 07:06 84 25 158/98 96 05/16/20 06:36 84 25 158/98 96 05/16/20 04:24 97.7 84 25 158/98 (118) 96 05/16/20 04:00 86 05/16/20 00:19 97.7 89 19 165/102 (123) 96 05/16/20 00:03 92 18 148/90 96 05/16/20 00:00 92 148/90 05/16/20 00:00 86 05/15/20 21:00 Room Air 05/15/20 20:33 94 150/101 05/15/20 20:00 99 05/15/20 20:00 97.9 94 19 142/94 (110) 95 05/15/20 18:07 84 20 147/89 98 05/15/20 17:04 147/89 05/15/20 16:00 97.9 84 20 147/89 (108) 98 05/15/20 15:33 87 05/15/20 12:29 85 05/15/20 12:00 98.1 80 20 130/86 (101) 95 05/15/20 12:00 80 19 130/85 97 05/15/20 11:56 80 130/85 Intake and Output 05/15/20 05/16/20 19:00 07:00 Intake Total 400 ml 4000 ml Balance 400 ml 4000 ml Intake Oral 400 ml 4000 ml # Voids 4 5 Laboratory Tests 05/15/20 15:58: POC Whole Blood Glucose 272H 05/16/20 05:15: White Blood Count 2.7L, Red Blood Count 3.96L, Hemoglobin 10.4L, Hematocrit 34.0L, Mean Corpuscular Volume 86, Mean Corpuscular Hemoglobin 26.2L, Mean Corpuscular Hemoglobin Concent 30.5L, Red Cell Distribution Width 15.5H, Platelet Count 259, Mean Platelet Volume 8.4, Neutrophils (%) (Auto) , Lymphocytes (%) (Auto) , Monocytes (%) (Auto) , Eosinophils (%) (Auto) , Basophils (%) (Auto) , Differential Total Cells Counted 100, Neutrophils % ( Manual) 50, Lymphocytes % (Manual) 35, Monocytes % (Manual) 10, Eosinophils % ( Manual) 4H, Basophils % (Manual) 1, Band Neutrophils 0, Platelet Estimate Adequate, Platelet Morphology Normal, Hypochromasia 1+, Anisocytosis 1+, Sodium Level 137, Potassium Level 3.5, Chloride Level 100, Carbon Dioxide Level 29, Anion Gap 8, Blood Urea Nitrogen 19H, Creatinine 1.1, Estimat Glomerular Filtration Rate > 60, Glucose Level 374H, Calcium Level 9.2 05/16/20 05:26: POC Whole Blood Glucose 350H Height (Feet): 6 Height (Inches): 2.00 Weight (Pounds): 235 General Appearance: alert EENT: normal ENT inspection Neck: supple Cardiovascular: normal rate Respiratory/Chest: lungs clear Abdomen: normal bowel sounds, non tender, soft Extremities: non-tender Dion Almendarez MD May 16, 2020 11:57
[2020-05-16 12:00] VITALS: BP 186/111
[2020-05-16] MEDS ORDERED: NEXIUM40 MG ORAL (12:26)
--- NOTE | 2020-05-16 12:55 | NUR ---
NURSE NOTES: Left message with Ary at Dr. Chirag Barnes's office notifying that patient wants to be discharged, is it ok for clearance for discharge from cardiac perspective. Patient is sinus rhythm, blood ujpgawms=016/111, pulse=98, provided 60 mg. Nifedipine XL plus am blood pressure medications.
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
[2020-05-16] MEDS ORDERED: PERCOCET 10-321 EACH ORAL (13:40)
--- NOTE | 2020-05-16 13:40 | NUR ---
CASE MANAGEMENT: REVIEW SI: VOMITING AND DIARRHEA . CHEST PAIN . ABD PAIN T 99.0 HR 102 RR 16 BP 162/100 SAT 98% ROOM AIR H/H 11.9/39.1 GLUCOSE 290 TOX SCREEN: +BENZODIAZEPINES IS: DILAUDID IV X1 NS IVF BOLUS X1 FENTANYL IV X1 ZOFRAN IV X1 TELEMETRY UNIT STATUS DCP: PATIENT IS FROM HOME
[2020-05-16] MEDS ORDERED: cloNIDine 0.2mg Tab ORAL PRN (13:45)
--- NOTE | 2020-05-16 13:49 | Cardiac Electrophysiology PN ---
Assessment/Plan Assessment/Plan 1. Accelerated hypertension. On Coreg 25 mg b.i.d. Procardia 60 mg b.i.d. and clonidine 0.2 mg b.i.d.and p.r.n. clonidine Offered to change Procardia and Clonidine to Lasix 40 po bid and Diovan 80 bid in view of his CMP but refusing. Wants to stay on his home meds until he gets to [place]. 2. CHF EF 35%. Says EF was 15% at [facility] 3 months ago and was offered ICD Refusing IV access. On Coreg. allergic to Lisinopril and Hydralazine. Added Lasix 40 po bid and Diovan 80 bid but refusing 3. Chest pain. Troponins are negative. EKG shows LVH and repolarization abnormality Echo EF 35% 4. History of pulmonary embolus. The patient underwent a CT of the chest, abdomen, and pelvis that showed no acute findings, and a CT of abdomen and pelvis was also normal. 5. History of noncompliance. 6. History of depression and anxiety. CASEY RN Subjective Subjective ECho EF 35%-40%. Refusing to adjust cardiac meds. Very noncompliant and argumentative with RN and staff. Wants to leave and get to train to [place]. BP in 180s Objective Last 24 Hour Vital Signs Date Time Temp Pulse Resp B/P (MAP) Pulse Ox O2 Delivery O2 Flow Rate FiO2 05/16/20 12:57 98 20 186/111 98 05/16/20 12:12 98 186/111 05/16/20 12:00 99.0 98 20 186/111 (136) 98 05/16/20 10:02 99.5 05/16/20 08:37 173/115 05/16/20 08:07 84 173/115 05/16/20 08:00 108 05/16/20 08:00 99.5 97 18 173/115 (134) 99 05/16/20 07:06 84 25 158/98 96 05/16/20 06:36 84 25 158/98 96 05/16/20 04:24 97.7 84 25 158/98 (118) 96 05/16/20 04:00 86 05/16/20 00:19 97.7 89 19 165/102 (123) 96 05/16/20 00:03 92 18 148/90 96 05/16/20 00:00 92 148/90 8/31/20 00:00 86 05/15/20 21:00 Room Air 05/15/20 20:33 94 150/101 05/15/20 20:00 99 05/15/20 20:00 97.9 94 19 142/94 (110) 95 05/15/20 18:07 84 20 147/89 98 05/15/20 17:04 147/89 05/15/20 16:00 97.9 84 20 147/89 (108) 98 05/15/20 15:33 87 Intake and Output 05/15/20 05/16/20 19:00 07:00 Intake Total 400 ml 4000 ml Balance 400 ml 4000 ml Intake Oral 400 ml 4000 ml # Voids 4 5 Laboratory Tests Test 05/15/20 15:58 05/16/20 05:15 05/16/20 05:26 05/16/20 12:11 POC Whole Blood Glucose 272 MG/DL (74-106) H 350 MG/DL (74-106) H 317 MG/DL (74-106) H White Blood Count 2.7 K/UL (4.8-10.8) L Red Blood Count 3.96 M/UL (4.70-6.10) L Hemoglobin 10.4 G/DL (14.2-18.0) L Hematocrit 34.0 % (42.0-52.0) L Mean Corpuscular Volume 86 FL (80-99) Mean Corpuscular Hemoglobin 26.2 PG (27.0-31.0) L Mean Corpuscular Hemoglobin Concent 30.5 G/DL (32.0-36.0) L Red Cell Distribution Width 15.5 % (11.6-14.8) H Platelet Count 259 K/UL (150-450) Mean Platelet Volume 8.4 FL (6.5-10.1) Neutrophils (%) (Auto) % (45.0-75.0) Lymphocytes (%) (Auto) % (20.0-45.0) Monocytes (%) (Auto) % (1.0-10.0) Eosinophils (%) (Auto) % (0.0-3.0) Basophils (%) (Auto) % (0.0-2.0) Differential Total Cells Counted 100 Neutrophils % (Manual) 50 % (45-75) Lymphocytes % (Manual) 35 % (20-45) Monocytes % (Manual) 10 % (1-10) Eosinophils % (Manual) 4 % (0-3) H Basophils % (Manual) 1 % (0-2) Band Neutrophils 0 % (0-8) Platelet Estimate Adequate Platelet Morphology Normal Hypochromasia 1+ Anisocytosis 1+ Sodium Level 137 MMOL/L (136-145) Potassium Level 3.5 MMOL/L (3.5-5.1) Chloride Level 100 MMOL/L (98-107) Carbon Dioxide Level 29 MMOL/L (21-32) Anion Gap 8 mmol/L (5-15) Blood Urea Nitrogen 19 mg/dL (7-18) H Creatinine 1.1 MG/DL (0.55-1.30) Estimat Glomerular Filtration Rate > 60 mL/min (>60) Glucose Level 374 MG/DL (74-106) H Calcium Level 9.2 MG/DL (8.5-10.1) Microbiology Date/Time Source Procedure Growth Status 05/14/20 07:35 Nasopharynx SARS-CoV-2 RdRp Gene Assay - Final Complete Objective HEAD AND NECK: No JVD. LUNGS: Clear. CARDIOVASCULAR: Shows regular S1 and S2 with no gallop or murmur. ABDOMEN: Soft. EXTREMITIES: No pitting edema. Chirag Barnes MD May 16, 2020 13:49
--- NOTE | 2020-05-16 13:51 | NUR ---
INSURANCE CLINICALS/REVIEW FAXED TO [facility]:GALEN RODRIGUEZ. P:[phone] F:[phone] CALL REF#[id number]
[2020-05-16 14:09] VITALS: BP 191/117
--- NOTE | 2020-05-16 14:16 | NUR ---
NURSE NOTES: Patient discharged with belongings, blood pressure 191/117 treated with prn Clonidine prior to discharge. Patient insisting on discharge today due to in family and stated, "I have a train to catch at 2 pm to [place]."
--- NOTE | 2020-05-16 14:40 | NUR ---
P.T Note: P.T evaluation completed. Pt is baseline independent in all areas of ADL/functional mobilities and gait/locomotion. Current functional status does not warrant skilled P.T service at this time. [facility] P.T services. Thank you for this referral.
--- NOTE | 2020-05-16 23:27 | Initial Psychiatric Evaluation ---
Psychiatry Consultation Psychiatry Consultation Chief Complaint: Abdominal Pain Allergies: Coded Allergies: HYDRALAZINE (Verified Allergy, Severe, angio edema, 01/11/18) angio edema ETODOLAC (Unverified Allergy, Mild, 01/11/18) AMLODIPINE (Unverified Allergy, Unknown, 01/11/18) tolerates nifedipine 04/18/16 ASPIRIN (Verified Allergy, Unknown, 01/11/18) ATENOLOL (Verified Allergy, Unknown, 01/11/18) tolerates metoprolol 04/18/16 DIPHENHYDRAMINE (Verified Allergy, Unknown, 01/11/18) HYDROCHLOROTHIAZIDE (Verified Allergy, Unknown, 01/11/18) LABETALOL (Verified Allergy, Unknown, 01/11/18) tolerates metoprolol 04/18/16 LISINOPRIL (Unverified Allergy, Unknown, 01/10/16) LORATADINE (Verified Allergy, Unknown, 01/11/18) MILK (Verified Allergy, Unknown, 01/11/18) MORPHINE (Verified Allergy, Unknown, 01/11/18) NICARDIPINE (Verified Allergy, Unknown, 01/11/18) tolerates nifedipine 04/18/16 NITROGLYCERIN (Unverified Allergy, Unknown, 01/11/18) PENICILLINS (Unverified Allergy, Unknown, 01/11/18) tolerates cephalexin 04/18/16 [place] Nut (Verified Allergy, Unknown, 01/11/18) SHELLFISH DERIVED (Verified Allergy, Unknown, 01/11/18) Medication History Scheduled Citalopram Hydrobromide* (Celexa*), 20 MG ORAL DAILY Clonidine HCl (Clonidine HCl), 0.3 MG PO THREE TIMES A DAY, (Reported) Clorazepate Dipotassium (Tranxene T-Tab), 7.5 MG PO TWICE A DAY, (Reported) Esomeprazole Magnesium (Nexium), 40 MG ORAL DAILY, (Reported) Hydromorphone HCl (Dilaudid), 2 MG ORAL Q4H Insulin Glargine (Lantus), 35 SUBQ BEDTIME, (Reported) Nifedipine Er* (Adalat Cc*), 60 MG ORAL TWICE A DAY, (Reported) Scheduled PRN Diazepam* (Valium*), 10 MG ORAL TID PRN for ANXIETY, (Reported) Esomeprazole Magnesium (Nexium), 20 MG ORAL DAILY PRN for AD, (Reported) OXYCODONE HCl* (Roxicodone*), 15 MG ORAL Q6H PRN for For Pain, (Reported) Oxycodone Hcl/Acetaminophen 10-325 Mg Tablet (Percocet 10-325 Mg Tablet*), 1 TAB ORAL Q8H PRN for For Pain, (Reported) Miscellaneous Medications Insulin Lispro (Humalog), 0 SUBQ, (Reported) Discontinued Medications Citalopram Hydrobromide* (Celexa*), 20 MG ORAL DAILY, (Reported) Discontinued Reason: MD discontinued med Hydrocodone Bit/Acetaminophen 10-325* ([place] 10-325*), 1 TAB ORAL Q4H PRN for For Pain, (Reported) Discontinued Reason: Medication dose changed Losartan Potassium (Cozaar), 100 MG ORAL DAILY, (Reported) Discontinued Reason: discontinued med Metoprolol Tartrate* (Metoprolol Tartrate*), 50 MG ORAL BID, (Reported) Discontinued Reason: MD discontinued med Objective Data Height (Feet): 6 Height (Inches): 2.00 Weight (Pounds): 235 Kat Martinez MD May 16, 2020 23:27
--- NOTE | 2020-05-17 12:59 | Discharge Summary ---
Discharge Summary Discharge Summary _ DATE OF ADMISSION: 05/14/2020 DATE OF DISCHARGE: 05/16/2020 DISCHARGED BY: REASON FOR ADMISSION: 45 years old male with past medical history of hypertension, spinal stenosis, diabetes mellitus, presented to emergency department with vomiting , diarrhea and generalized abdominal pain. Patient also reported exertional chest pain, radiating to his shoulder. Patient reported history of pulmonary emboli x 2 in the last year. He stopped anticoagulation in September or October. Patient also reported that he had reduced ejection fraction. Nuclear stress test from 2016 in this facility revealed calculated ejection fraction of 53%. Patient allergic to contrast dye and usually gets prednisone or Solu-Medrol before having CT scan . Patient reported eating dinner and several hours later started to experience generalized abdominal cramping and pain. Patient reported one episode of nonbloody nonbilious vomiting and one episode of nonbloody diarrhea. EKG revealed sinus tachycardia with inverted ST inferiorly. Troponin was negative. Rapid COVID-19 was negative. Abdominal pain was reported as sharp in nature, diffuse and poorly localized. He denied fever and chills. He denied shortness of breath, palpitations. Upon evaluation vital signs were stable. Laboratory work-up revealed no leukocytosis,hemoglobin 11.9 ,hematocrit 39.1 , platelet count 327. Potassium 3.0. BUN 13, creatinine 1.1. Glucose 290. Lactic acid 1.0. Stable LFT. Chest x-ray revealed no acute cardiopulmonary pathology. CT scan of the abdomen and pelvis revealed no evidence of intra-abdominal pathology. In emergency department patient received analgesic, antiemetic,1 L of fluid. Potassium was replaced. Patient subsequently admitted to telemetry floor for further management. CONSULTANTS: dough cutter Dr. Gentile GI specialist Dr. Ross etl consultant Dr. Boone surgery Dr. Lehman pain specialist Dr. Ortiz psychiatrist [facility]SE: Patient admitted to telemetry floor. Patient noted to have accelerated blood pressure. Blood pressure was managed with multiply antihypertensive medications, including beta-mirza, calcium channel mirza and clonidine. Additional clonidine was on board as needed for blood pressure spikes. Deck Engineer recommended diuretics , however patient declined. Patient wants to stay on his home medication until he gets to [place]. Echocardiogram revealed ejection fraction of 35%. Patient reported that the ejection fraction was 15% 3 months ago , and patient was offered ICD, that he declined. Patient allergic to lisinopril and hydralazine . Patient was on beta-mirza a Deck Engineer added diuretic and Diovan, but patient refused. Troponin were negative. EKG revealed left ventricular hypertrophy and repolarization abnormality. Supplemental oxygen was on board as needed to keep pulse oximetry above 92% . Pulse oximetry remained stable on room air. Anemia work up revealed evidence of iron deficiency anemia . Hemoglobin and hematocrit were closely monitored with goal to keep hemoglobin above 7; prior to discharge hemoglobin 10.4 , hematocrit 34. Patient declined EGD and colonoscopy. Patient received information how to contact GI to schedule outpatient GI procedures. Patient slowly started on diet . Patient was able to tolerate diet Patient did not provide stool sample as was asked. Pain management was addressed as per pain specialist recommendation. Renal parameters and electrolytes were closely monitored . Nephrotoxic's were avoided. Electrolytes corrected as needed. ' Surgeon seen and evaluated patient . Abdominal exam was benign. CT scan of the abdomen and pelvis was benign. No acute surgical intervention was required at this time. FINAL DIAGNOSES: Hypertensive urgency Cardiomyopathy with ejection fraction 35% Chest pain History of pulmonary emboli Noncompliance Depression and anxiety Iron deficiency anemia Diarrhea Lumbar degenerative disc disease Lumbar stenosis Herniated disc DISCHARGE MEDICATIONS: See Medication Reconciliation list. DISCHARGE INSTRUCTIONS:. Per the primary care provider in 1 week. Patient to follow-up with GI as outpatient for EGD and colonoscopy Patient was discharged home I have been assigned to dictate discharge summary for this account. I was not involved in the patient's management. Graciela Bagley NP May 17, 2020 12:59
== END 2020-05-16 15:35 | disposition home or self-care (01) | DRG 199 ==
LOC: EDUNIT# 04:21 → EDBD 04:21 → EMR 04:35 → OBSVTOIN 09:02 → 2E 09:02 → EDBEDREQ 09:41 → 2E 05-15 23:10
DX: I16.0 Hypertensive urgency (principal); E11.65 Type 2 diabetes mellitus with hyperglycemia; F43.10 Post-traumatic stress disorder, unspecified; E87.6 Hypokalemia; M47.26 Other spondylosis with radiculopathy, lumbar region; D50.9 Iron deficiency anemia, unspecified; R19.7 Diarrhea, unspecified; Z88.6 Allergy status to analgesic agent; Z88.0 Allergy status to penicillin; Z88.8 Allergy status to other drugs, medicaments and biological substances; Z91.018 Allergy to other foods; Z86.711 Personal history of pulmonary embolism; I42.9 Cardiomyopathy, unspecified; F41.8 Other specified anxiety disorders; M51.26 Other intervertebral disc displacement, lumbar region; M48.061 Spinal stenosis, lumbar region without neurogenic claudication; Z79.4 Long term (current) use of insulin; Z91.041 Radiographic dye allergy status; Z20.828 Contact with and (suspected) exposure to other viral communicable diseases; F15.10 Other stimulant abuse, uncomplicated; F19.10 Other psychoactive substance abuse, uncomplicated; Z91.14 Patient's other noncompliance with medication regimen; G89.4 Chronic pain syndrome; R10.12 Left upper quadrant pain
CPT/HCPCS: 36415; 71045; 71250; 74176; 80048; 80053; 80076; 80307; 81003; 82607; 82728; 82746; 82962; 83540; 83550; 83605; 83735; 84100; 84484; 84550; 85007; 85025; 85379; 85610; 85730; 86140; 87045; 93005; 93306; 96361; 96374; 96375; 96376; 99285; J1815; J2405; J7030; J8499; S5561; U0002